=== PATIENT | female | born 1960 | race Hispanic/Latino ===

== ENCOUNTER → 2023-11-05 | Emergency (ER) | payer OTHER ==
[~2023-11-05] MED LIST: MORPHINE 4 MG/ML SYR ONE; ONDANSETRON 4 MG/2 ML VIAL ONE
--- NOTE | 2023-11-05 22:40 | RAD REPORT ---
EXAM DESCRIPTION: CTAbdomen Pelvis Wo Contrast - 11/05/2023 10:29 pm CLINICAL HISTORY: ABD PAIN COMPARISON: No comparisons TECHNIQUE: CT of the abdomen and pelvis was performed. All CT scans are performed using dose optimization technique as appropriate and may include automated exposure control or mA/KV adjustment according to patient size. FINDINGS: Lower chest: No acute abnormality. Liver: No acute abnormality or suspicious lesions. Biliary: Cholelithiasis. No CT evidence of acute cholecystitis. Stomach: No significant focal abnormality. Duodenum: No significant focal abnormality. Pancreas: No significant abnormality. Spleen: No significant abnormality. Adrenal: No suspicious lesions. Kidney/ureter: No hydronephrosis. No renal calculi. Retroperitoneum: No retroperitoneal adenopathy. Vascular: No aneurysm. Bowel: Normal appendix. Mild to moderate colonic stool burden.. No bowel obstruction. Peritoneum: No ascites or free air. Small fat containing ventral hernia with narrow neck. Tiny fat co ntaining umbilical hernia. Bladder: Grossly unremarkable. Reproductive: No adnexal masses. Bones: No acute fracture. Other: n/a IMPRESSION: No acute intra-abdominal or pelvic finding. Ancillary findings as noted above.
[2023-11-05 23:24] LABS: Specific Gravity 1.008 (1.005-1.030); Urine Bilirubin NEGATIVE (Negative); Urine Blood Negative (Negative); Urine Clarity Clear (Clear); Urine Color Colorless (Yellow); Urine Glucose NEGATIVE (Negative); Urine Protein NEGATIVE (Negative); Urine Urobilinogen Normal (Normal); Urine pH 6.5 (5.0-7.0)
[2023-11-05 23:33] LABS: Absolute Lymphocytes (CBC) 2.5 K/uL (0.7-4.9); Albumin 3.6 g/dL (3.4-5.0); Bilirubin Total 0.3 mg/dL (0.2-1.0); Hematocrit 43.8 % (36.0-45.0); Lymphocytes % 29.1 % (15.3-44.8); MCV 93.9 fL (80-100); MPV 10.5 fL (7.6-11.3); Platelets 211 thou/uL (152-406); Protein, Total 7.8 g/dL (6.4-8.2); RBC Red Blood Cell Count 4.67 M/uL (3.86-4.86)
--- NOTE | 2023-11-06 00:04 | EDPHYS ---
Physician Documentation [facility] Name: Caroline Jimenez Age: 62 yrs Sex: Female : 1960 Arrival Date: 11/05/2023 Time: 21:49 Bed 16 Private MD: ED Physician Charles Toribio HPI: 11/05 23:02 This 62 yrs old Female presents to ER via Wheelchair with complaints of kb Abdominal Pain. 23:03 Patient is a 62-year-old female who presents for abdominal pain. States she has had a kb hernia in the area of pain for years and has had pain intermittently over the last 2 to 5 years but it seems like it is getting worse. Denies fever, nausea, vomiting, diarrhea.. Historical: - Allergies: 22:08 No Known Allergies; tl4 - PMHx: 22:08 HIV positive; Hypertensive disorder; Aneurysm; brain; tl4 - PSHx: 22:08 Aneurysm repair; tl4 - Immunization history:: Adult Immunizations unknown. - Social history:: Smoking status: Patient reports the use of cigarette tobacco products, smokes one pack cigarettes per day. ROS: 23:01 Constitutional: Negative for fever, chills, and weight loss, kb 23:01 Abdomen/GI: Positive for abdominal pain, Negative for nausea, vomiting, and diarrhea, 23:01 All other systems are negative, Exam: 23:01 Constitutional: This is a well developed, well nourished patient who is awake, alert, kb and in no acute distress. Head/Face: Normocephalic, atraumatic. ENT: Moist Mucous membranes Cardiovascular: Regular rate Respiratory: Respirations even and unlabored. No increased work of breathing. Talking in full sentences Skin: Warm, dry with normal turgor. Normal color. MS/ Extremity: Pulses equal, no cyanosis. Neurovascular intact. Full, normal range of motion. Neuro: Awake and alert, GCS 15, oriented to person, place, time, and situation. Moves all extremities. Normal gait. 23:01 Abdomen/GI: Inspection: abdomen appears normal, Bowel sounds: normal, Palpation: soft, in all quadrants, mild abdominal tenderness, in the umbilical area, Hernia: tenderness, that is mild, Vital Signs: 22:00 BP 154 / 89; Pulse 74; Resp 20; Temp 98.5; Pulse Ox 93% on R/A; Pain 10/10; tl4 22:07 Weight 88.45 kg; Height 5 ft. 5 in. ; tl4 22:51 Pulse 81; Pulse Ox 97% on R/A; tm6 22:54 BP 147 / 88; tm6 22:54 Pain 10/10; tm6 23:59 BP 132 / 74; Pulse 71; Pulse Ox 96% on R/A; tm6 22:07 Body Mass Index 32.45 (88.45 kg, 165.1 cm) tl4 22:00 Pain Scale: Adult tl4 22:54 Pain Scale: Adult tm6 MDM: 22:02 Patient medically screened. kb 23:01 Data reviewed: vital signs, nurses notes. kb 23:03 Differential diagnosis: bowel obstruction, gastritis, non-specific abd pain, kb pancreatitis, Peptic Ulcer Disease, Hernia. 11/06 00:03 Counseling: I had a detailed discussion with the patient and/or guardian regarding the kb historical points, exam findings, and any diagnostic results supporting the discharge/admit diagnosis, lab results, radiology results, the need for outpatient follow up, a family practitioner, to return to the emergency department if symptoms worsen or persist or if there are any questions or concerns that arise at home. 11/05 22:08 Order name: CBC with Diff; Complete Time: 23:56 kb 11/05 22:08 Order name: CMP; Complete Time: 23:35 kb 11/05 22:08 Order name: Lipase; Complete Time: 23:35 kb 11/05 22:08 Order name: Urinalysis w/ reflexes; Complete Time: 23:29 kb 11/05 22:08 Order name: CT Abd/Pelvis - Without Contrast; Complete Time: 22:43 kb 11/05 22:08 Order name: IV Saline Lock; Complete Time: 22:51 kb 11/05 22:08 Order name: Labs collected and sent; Complete Time: 22:51 kb Administered Medications: 11/05 23:44 Drug: morphine IVP or IV 4 mg IVP once over 4 mins Route: IVP; Infused Over: 4 mins; pf1 Site: left antecubital; 23:44 Drug: Ondansetron IVP 4 mg IVP once; over 2 minutes Route: IVP; Site: left antecubital; pf1 Disposition: 23:36 I was immediately available on-site in the Emergency Department for consultation in the ms3 care of the patient. Disposition Summary: 11/06/23 00:03 Discharge Ordered Notes: Location: Home kb Condition: Stable kb Diagnosis - Abdominal pain, unspecified kb Followup: kb - With: Emergency Department - When: As needed - Reason: Worsening of condition Followup: kb - With: Private Physician - When: 2 - 3 days - Reason: Recheck today's complaints, Continuance of care, Re-evaluation by your physician Discharge Instructions: - Discharge Summary Sheet kb - Abdominal Pain, Adult, [id number] kb Forms: - Medication Reconciliation Form kb - Thank You Letter kb - Antibiotic Education kb - Prescription Opioid Use kb - Patient Portal Instructions kb - Leadership Thank You Letter kb Signatures: Dispatcher [employer] EDMS Yessy Avina FNP-C FNP-Charles Sims, DO ms3 Suha Reese RN RN pf1 Sonu Camacho tl4 Corrections: (The following items were deleted from the chart) 23:02 23:01 Abdomen/GI: Inspection: abdomen appears normal, Bowel sounds: normal, Palpation: kb soft, in all quadrants, mild abdominal tenderness, in the umbilical area, kb
--- NOTE | 2023-11-06 00:04 | ER ---
Nurse's Notes [facility] Name: Caroline Jimenez Age: 62 yrs Sex: Female : 1960 Arrival Date: 11/05/2023 Time: 21:49 Bed 16 Private MD: Diagnosis: Abdominal pain, unspecified Presentation: 11/05 22:00 Chief complaint: Patient states: Pt c/o progressively worsening umbilical abdominal tl4 pain since Monday. Pt states she has a progressively worsening abdominal hernia x 5 years. +nausea. Coronavirus screen: Vaccine status: Patient reports receiving the 2nd dose of the covid vaccine. Ebola Screen: Patient negative for fever greater than or equal to 101.5 degrees Fahrenheit, and additional compatible Ebola Virus Disease symptoms Patient denies exposure to infectious person. Patient denies travel to an Ebola-affected area in the 21 days before illness onset. No symptoms or risks identified at this time. Initial Sepsis Screen: Does the patient meet any 2 criteria? No. Patient's initial sepsis screen is negative. Does the patient have a suspected source of infection? No. Patient's initial sepsis screen is negative. Risk Assessment: Do you want to hurt yourself or someone else? Patient reports no desire to harm self or others. Onset of symptoms was November 03, 2023. 22:00 Method Of Arrival: Wheelchair tl4 22:00 Acuity: MICHAEL 3 tl4 Triage Assessment: 22:10 General: Appears in no apparent distress. Behavior is calm, cooperative. Pain: tl4 Complains of pain in abdomen Pain currently is 10 out of 10 on a pain scale. Quality of pain is described as sharp. EENT: No signs and/or symptoms were reported regarding the EENT system. Neuro: No deficits noted. Cardiovascular: No deficits noted. Denies chest pain, lightheadedness, palpitations. Respiratory: No deficits noted. Denies cough, shortness of breath. GI: Reports lower abdominal pain, upper abdominal pain, nausea. : No signs and/or symptoms were reported regarding the genitourinary system. Historical: - Allergies: 22:08 No Known Allergies; tl4 - PMHx: 22:08 HIV positive; Hypertensive disorder; Aneurysm; brain; tl4 - PSHx: 22:08 Aneurysm repair; tl4 - Immunization history:: Adult Immunizations unknown. - Social history:: Smoking status: Patient reports the use of cigarette tobacco products, smokes one pack cigarettes per day. Screenin:[address] [facility] ED Fall Risk Assessment (Adult) History of falling in the last 3 months, tl4 including since admission No falls in past 3 months (0 pts) Confusion or Disorientation No (0 pts) Intoxicated or Sedated No (0 pts) Impaired Gait No (0 pts) Mobility Assist Device Used No (0 pt) Altered Elimination No (0 pt) Score/Fall Risk Level 0 - 2 = Low Risk Oriented to surroundings, Maintained a safe environment, Educated pt \T\ family on fall prevention, incl call for assistance when getting out of bed, Assessed \T\ reinforced patient's understanding of fall precautions. Abuse screen: Denies threats or abuse. Denies injuries from another. Nutritional screening: No deficits noted. Tuberculosis screening: No symptoms or risk factors identified. Assessment: 22:36 General: Appears in no apparent distress. Behavior is calm, cooperative. Pain: tm6 Complains of pain in abdomen Pain currently is 10 out of 10 on a pain scale. Neuro: Level of Consciousness is awake, alert, obeys commands, Oriented to person, place, time, situation. Cardiovascular: Capillary refill < 3 seconds Patient's skin is warm and dry. Respiratory: Airway is patent Respiratory effort is even, unlabored, Respiratory pattern is regular, symmetrical. : No signs and/or symptoms were reported regarding the genitourinary system. EENT: No signs and/or symptoms were reported regarding the EENT system. Derm: No signs and/or symptoms reported regarding the dermatologic system. Musculoskeletal: No signs and/or symptoms reported regarding the musculoskeletal system. 23:59 Reassessment: Patient appears in no apparent distress at this time. No changes from tm6 previously documented assessment. Vital Signs: 22:00 BP 154 / 89; Pulse 74; Resp 20; Temp 98.5; Pulse Ox 93% on R/A; Pain 10/10; tl4 22:07 Weight 88.45 kg; Height 5 ft. 5 in. ; tl4 22:51 Pulse 81; Pulse Ox 97% on R/A; tm6 22:54 BP 147 / 88; tm6 22:54 Pain 10/10; tm6 23:59 BP 132 / 74; Pulse 71; Pulse Ox 96% on R/A; tm6 22:07 Body Mass Index 32.45 (88.45 kg, 165.1 cm) tl4 22:00 Pain Scale: Adult tl4 22:54 Pain Scale: Adult tm6 ED Course: 21:55 Patient arrived in ED. gm2 22:02 [facility] nic 22:02 Charles Toribio DO is Attending Physician. kb 22:04 Triage completed. tl4 22:05 Arm band placed on Patient placed in an exam room, on a stretcher. tl4 22:05 Placed in gown. Bed in low position. Call light in reach. Side rails up X2. tm6 22:25 Syed Kunz, RN is Primary Nurse. tm6 22:30 CT Abd/Pelvis - Without Contrast In Process Unspecified. EDMS 22:50 No provider procedures requiring assistance completed. Inserted saline lock: 20 gauge tm6 in left antecubital area, using aseptic technique. 22:51 Urinalysis w/ reflexes Sent. tm6 22:51 Lipase Sent. tm6 22:51 CMP Sent. tm6 22:51 CBC with Diff Sent. tm6 11/06 00:12 Provided Education on: follow up with GI and general surgery. tm6 00:12 IV discontinued, intact, bleeding controlled, No redness/swelling at site. Pressure tm6 dressing applied. Administered Medications: 11/05 23:44 Drug: morphine IVP or IV 4 mg IVP once over 4 mins Route: IVP; Infused Over: 4 mins; pf1 Site: left antecubital; 23:44 Drug: Ondansetron IVP 4 mg IVP once; over 2 minutes Route: IVP; Site: left antecubital; pf1 Medication: 22:05 VIS not applicable for this client. tl4 Outcome: 11/06 00:03 Discharge ordered by . kb 00:12 Discharged to home ambulatory, with family, tm6 00:12 Condition: stable 00:12 Discharge instructions given to patient, Instructed on discharge instructions, follow up and referral plans. Demonstrated understanding of instructions, follow-up care, medications, 00:13 Patient left the ED. tm6 Signatures: Dispatcher [employer] EDMS Yessy Avina FNP-C FNP-Ckb Finley, Pamala RN RN pf1 Fifi Armstrong gm2 Syed Kunz, RN RN tm6 [place], Sonu tl4
[2023-11-06 01:31] VITALS: BP 132/74; TEMP 98.5; O2SAT 96
== END ==
LOC: ER 21:49
DX: R10.9 Unspecified abdominal pain (principal); Z21 Asymptomatic human immunodeficiency virus [HIV] infection status; I10 Essential (primary) hypertension; F17.210 Nicotine dependence, cigarettes, uncomplicated
CPT/HCPCS: 85025; 36415; 81003; 83690; 80053; 74176; 96375; 96374; 99284; J2405

== ENCOUNTER 2024-11-30 22:12 | Inpatient (IN) | payer OTHER ==
[2024-11-30] MEDS ORDERED: ASPIRIN 81 MG CHEWABLE TABLET ONE (23:42)
[2024-11-30 23:50] LABS: Absolute Basophils 0.1 K/uL (0-0.5); Absolute Eosinophils 0.4 K/uL (0-0.5); Absolute Lymphocytes (CBC) 2.4 K/uL (0.7-4.9); Absolute Monocytes 0.6 K/uL (0.1-1.3); Absolute Neutrophil 3.9 K/uL (1.8-8.0); Basophils % 1.2 % (0-1.3); Eosinophils % 5.1 % (0-4.4); Hematocrit 44.2 % (36.0-45.0); Hemoglobin 14.9 g/dL (12.0-15.0); Lymphocytes % 32.4 % (15.3-44.8); MCH 31.9 pg (27.0-35.0); MCHC 33.7 g/dL (32.0-36.0); MCV 94.6 fL (80-100); MPV 10.2 fL (7.6-11.3); Monocytes % 8.4 % (3.3-12.3); Neutrophils % 52.9 % (41.7-73.7); Nucleated Red Blood Cells % 0.2 % (0-0); Platelets 208 thou/uL (152-406); RBC Red Blood Cell Count 4.68 M/uL (3.86-4.86); Red Cell Distribution Width 13.8 % (12.1-15.2)
[2024-12-01 00:09] LABS: ALT/SGPT 23 U/L (13-56); AST/SGOT 17 U/L (15-37); Albumin 3.3 g/dL (3.4-5.0); Albumin/Globulin Ratio 0.8 (1.1-1.8); Alkaline Phosphatase 82 U/L (45-117); Anion Gap 8.4 mEq/L (5.0-15.0); BUN Blood Urea Nitrogen 25 mg/dL (7-18); Bicarbonate 24 mEq/L (21-32); Bilirubin Total 0.4 mg/dL (0.2-1.0); Globulin 4.1 g/dL (2.3-3.5); Glomerular Filtration Rate 71 ml/min (=/>90); Glucose Level 117 mg/dL (74-106); Magnesium 2.2 mg/dL (1.6-2.4); NT PRO-BNP 81 pg/mL (<125); Potassium 3.4 mEq/L (3.5-5.1); Protein, Total 7.4 g/dL (6.4-8.2); Sodium Level 143 mEq/L (136-145); Troponin High Sensitivity 6.6 pg/mL (<58.9)
[2024-12-01 00:10] LABS: Bilirubin Direct < 0.2 mg/dL (0-0.2); Bilirubin Indirect, Calculated 0.2 mg/dL (0.2-0.8)
[2024-12-01] MEDS ORDERED: NA CHLORIDE 0.9% 1,000 ML ONE (00:23)
[2024-12-01 00:24] LABS: PT Prothrombin Time 11.4 SECONDS (9.4-12.5); Protime INR 1.09
--- NOTE | 2024-12-01 00:30 | RAD REPORT ---
TIME OF STUDY: 11/30/2024 11:06 PM CATALYTIC CASE OPERATOR REASON FOR EXAM: CHEST PAIN COMPARISON: None. FINDINGS: AP view of the chest was obtained, chest 1 view. Lungs: The lungs are adequately inflated. No dense airspace consolidation is noted. Mild pulmonary va scular congestion is seen.. Pleura: No pneumothorax. There is no pleural effusion. Heart and Mediastinum: Normal cardiomediastinal silhouette and great vessels.. Bones: No acute bony abnormality.. IMPRESSION: 1. Mild pulmonary vascular congestion. Electronically signed by: Foster Kelley MD 11/30/2024 11:50 PM CATALYTIC CASE OPERATOR Due to temporary technical issues with the PACS/[employer] reporting system, reports are being yen d by the in-house radiologist without review as a courtesy to ensure prompt reporting the interpreting radiologist is fully responsible for the content of the report. Transcribed Date/Time: 12/01/2024 12:30 AM
--- NOTE | 2024-12-01 01:30 | EDPHYS ---
Physician Documentation [facility] Name: Caroline Jimenez Age: 64 yrs Sex: Female : 1960 Arrival Date: 11/30/2024 Time: 22:12 Bed 5 Private MD: ED Physician [facility] HPI: 11/30 23:12 This 64 yrs old Female presents to ER via Unassigned with complaints of Chest sb4 Pain. 23:12 The patient or guardian reports chest pain that is located primarily in the anterior sb4 chest wall, left. Onset: yesterday. The pain radiates to the left arm. Associated signs and symptoms: Pertinent positives: cough, nausea, shortness of breath. left sided chest pain x 2 days, radiates down to left arm. denies any cardiac history . Historical: - Allergies: 23:16 No Known Allergies; vc1 - PMHx: 23:16 Aneurysm; brain; HIV positive; Hypertensive disorder; vc1 - PSHx: 23:16 aneurysm repair; vc1 - Immunization history:: Client reports receiving the 2nd dose of the Covid vaccine, Flu vaccine is not up to date. - Infectious Disease History:: Denies. - Social history:: Smoking status: Patient reports the use of cigarette tobacco products, <1PPD. ROS: 23:12 Constitutional: Negative for fever, chills, and weight loss, sb4 23:12 Cardiovascular: Positive for chest pain, Exam: 23:12 Head/Face: Normocephalic, atraumatic. Eyes: Extra-ocular motions intact. Periorbital sb4 areas with no swelling, redness, or edema. ENT: Mucous membranes moist. Cardiovascular: Regular rate and rhythm with a normal S1 and S2. Respiratory: No increased work of breathing, no retractions or nasal flaring. Abdomen/GI: Soft, non-tender, no distension. Skin: Warm, dry with normal turgor. Normal color with no rashes, no lesions, and no evidence of cellulitis. 23:12 Constitutional: The patient appears alert, awake, obviously ill, Vital Signs: 23:14 Pulse 68; Resp 20; Temp 98; Pulse Ox 96% ; Weight 90.72 kg; Height 5 ft. 5 in. ; Pain vc1 10/10; 23:20 BP 129 / 82; vc1 23:30 BP 131 / 89; Pulse 68; Resp 15; Pulse Ox 98% on R/A; al5 12/01 00:00 BP 152 / 97; Pulse 66; Resp 17; Pulse Ox 98% ; al5 00:30 BP 148 / 92; Pulse 69; Resp 15; Pulse Ox 97% on R/A; al5 01:00 BP 134 / 85; Pulse 72; Resp 15; Pulse Ox 97% on R/A; al5 01:30 BP 156 / 90; Pulse 65; Resp 16; Pulse Ox 97% on R/A; al5 02:00 BP 154 / 90; Pulse 68; Resp 16; Pulse Ox 97% on R/A; al5 11/30 23:14 Body Mass Index 33.28 (90.72 kg, 165.1 cm) vc1 11/30 23:14 Pain Scale: Adult vc1 MDM: 11/30 22:34 Medical Screening Exam initiated sb4 12/01 00:46 The patient was given aspirin in the Emergency Department. Data reviewed: vital signs, sb4 nurses notes, lab test result(s), EKG, radiologic studies, and as a result, I will admit patient. Consideration of Admission/Observation Patient was admitted/placed on observation. Historians other than the Patient: Daughter/Son: daughter. Scoring Tools HEART Score: History: ECG: Age: Risk Factors: > or = 3 Risk factors for atherosclerotic disease (2), Troponin: Total Score = 5. Counseling: I had a detailed discussion with the patient and/or guardian regarding the historical points, exam findings, and any diagnostic results supporting the discharge/admit diagnosis, lab results, radiology results. 11/30 23:06 Order name: Basic Metabolic Panel; Complete Time: 00:10 4 11/30 23:06 Order name: CBC with Diff; Complete Time: 00:03 sb4 11/30 23:06 Order name: LFT's; Complete Time: 00:10 sb4 11/30 23:06 Order name: Magnesium; Complete Time: 00:10 sb4 11/30 23:06 Order name: NT PRO-BNP; Complete Time: 00:10 sb4 11/30 23:06 Order name: PT-INR; Complete Time: 00:27 sb4 11/30 23:06 Order name: Troponin HS; Complete Time: 00:10 sb4 12/01 00:11 Order name: [facility] 12/01 02:10 Order name: Lipid Profile [facility] 12/01 02:10 Order name: Lipid Profile [facility] 12/01 08:15 Order name: Glucose, Ancillary Testing [facility] 12/01 09:07 Order name: Hemoglobin A1c [facility] 12/01 11:44 Order name: Troponin High Sensitivity [facility] 12/01 12:05 Order name: Glucose, Ancillary Testing [facility] 12/01 16:52 Order name: Glucose, Ancillary Testing [facility] 11/30 23:06 Order name: XRAY Chest (1 view); Complete Time: 00:31 sb4 12/01 00:13 Order name: Chest For PE Angio CT sb4 12/01 02:10 Order name: Echo with Doppler [facility] 11/30 23:06 Order name: Cardiac monitoring; Complete Time: 23:36 4 11/30 23:06 Order name: EKG - Nurse/Tech; Complete Time: 23:36 4 11/30 23:06 Order name: IV Saline Lock; Complete Time: 23:36 [facility] 11/30 23:06 Order name: Labs collected and sent; Complete Time: 23:36 4 11/30 23:06 Order name: O2 Per Protocol; Complete Time: 23:36 4 11/30 23:06 Order name: O2 Sat Monitoring; Complete Time: 23:36 4 11/30 23:46 Order name: Misc. Order: recollect blue top- fill all the way up; Complete Time: 23:53 vc1 EC/15 23:12 Rate is 70 beats/min. Rhythm is regular, Normal Sinus Rhythm. Right axis deviation sb4 noted. NC interval is normal at 150 msec. QRS interval is normal at 90 msec. QT interval is normal at 422 msec. No Q waves. T waves are Normal. No ST changes noted. Clinical impression: Normal ECG. Interpreted by me. Reviewed by me. Administered Medications: 23:46 Drug: Aspirin PO Chewable Tablet 324 mg PO once; 81 mg tablets x 4 Route: PO; al5 12/01 05:18 Follow up: Response: No adverse reaction al5 00:26 Drug: NS 0.9% IV 1000 ml IV at 1000 ml once; to be given as a bolus over 60 minutes al5 Route: IV; Rate: 1000 ml; Site: right antecubital; 05:18 Follow up: Response: No adverse reaction; IV Status: Completed infusion; IV Intake: al5 1000ml 01:20 CANCELLED (Physician Discretion): morphineor iv 4 mg IVP once over 4 mins sb4 01:20 CANCELLED (Physician Discretion): ondansetron 4 mg IVP once; over 2 minutes sb4 02:17 Drug: fentaNYL (PF) IVP 25 mcg IVP once Route: IVP; Site: right antecubital; al5 05:18 Follow up: Response: No adverse reaction; Pain is decreased al5 02:17 Drug: Ondansetron IVP 4 mg IVP once; over 2 minutes Route: IVP; Site: right antecubital;al5 05:18 Follow up: Response: No adverse reaction al5 Disposition Summary: 12/01/24 01:29 Hospitalization Ordered Notes: Hospitalization Status: Observation sb4 Provider: Prince robert Vanegas Condition: Fair sb4 Problem: new sb4 Symptoms: are unchanged sb4 Bed/Room Type: Standard sb4 Location: Telemetry/MedSurg (Inpatient)(12/01/24 16:33) bp Room Assignment: 209(12/01/24 16:33) bp Diagnosis - Chest pain, unspecified sb4 Forms: - Medication Reconciliation Form sb4 - SBAR form sb4 - Leadership Thank You Letter sb4 Signatures: Dispatcher [employer] Heidi Chaney RN RN cg Gilberto Maynard RN RN bp Deanna Torrez RN RN vc1 Adri Christianson PA-C PA-C sb4 Frieda Posada RN RN al5 Corrections: (The following items were deleted from the chart) 00:13 00:13 Chest For PE Angio+CT.RAD.BRZ ordered. EDMS EDMS 01:20 00:31 morphine IVP or IV 4 mg IVP once over 4 mins ordered. sb4 sb4 01:20 00:31 Ondansetron IVP 4 mg IVP once; over 2 minutes ordered. sb4 sb4 02:05 01:29 Telemetry/MedSurg (observation) sb4 cg 02:05 01:29 sb4 cg 16:33 02:05 [facility] ER HOLD cg bp 16:33 02:05 ERHOLD- cg bp
--- NOTE | 2024-12-01 01:30 | ER ---
Nurse's Notes [facility] Name: Caroline Jimenez Age: 64 yrs Sex: Female : 1960 Arrival Date: 11/30/2024 Time: 22:12 Bed 5 Private MD: Diagnosis: Chest pain, unspecified Presentation: 11/30 23:14 Chief complaint: Patient states: pain below left breast that is worse with movement. vc1 Coronavirus screen: Client denies travel out of the [place] in the last 14 days. At this time, the client does not indicate any symptoms associated with coronavirus-19. Ebola Screen: Patient negative for fever greater than or equal to 101.5 degrees Fahrenheit, and additional compatible Ebola Virus Disease symptoms Patient denies exposure to infectious person. Patient denies travel to an Ebola-affected area in the 21 days before illness onset. No symptoms or risks identified at this time. Initial Sepsis Screen: Does the patient meet any 2 criteria? No. Patient's initial sepsis screen is negative. Does the patient have a suspected source of infection? No. Patient's initial sepsis screen is negative. Risk Assessment: Do you want to hurt yourself or someone else? Patient reports no desire to harm self or others. Onset of symptoms was November 30, 2024. 23:14 Method Of Arrival: Wheelchair vc1 23:14 Acuity: MICHAEL 3 vc1 Triage Assessment: 23:18 General: Appears in no apparent distress. uncomfortable, obese, well groomed, well vc1 developed, well nourished, Behavior is calm, cooperative, appropriate for age. Pain: Complains of pain in left lateral anterior chest Pain does not radiate. Pain currently is 10 out of 10 on a pain scale. Aggravated by weight bearing, Also complains of nausea. EENT: No deficits noted. No signs and/or symptoms were reported regarding the EENT system. Neuro: Level of Consciousness is awake, alert, obeys commands, Oriented to person, place, time, situation, Appropriate for age. Cardiovascular: Heart tones S1 S2 present Capillary refill < 3 seconds Patient's skin is warm and dry. Chest pain is described as severe, Pain is 10 out of 10 on a pain scale. quality is sharp, is located in left chest wall. Respiratory: Airway is patent Respiratory effort is even, unlabored, Respiratory pattern is regular, symmetrical. GI: Abdomen is round non-distended, Reports nausea. : No deficits noted. No signs and/or symptoms were reported regarding the genitourinary system. Derm: Skin is intact, is healthy with good turgor, Skin is dry, Skin is normal, Skin temperature is warm. Musculoskeletal: Circulation, motion, and sensation intact. Range of motion: intact in all extremities, Reports pain in left lateral anterior chest. Historical: - Allergies: 23:16 No Known Allergies; vc1 - PMHx: 23:16 Aneurysm; brain; HIV positive; Hypertensive disorder; vc1 - PSHx: 23:16 aneurysm repair; vc1 - Immunization history:: Client reports receiving the 2nd dose of the Covid vaccine, Flu vaccine is not up to date. - Infectious Disease History:: Denies. - Social history:: Smoking status: Patient reports the use of cigarette tobacco products, <1PPD. Screenin:17 [facility] ED Fall Risk Assessment (Adult) History of falling in the last 3 months, vc1 including since admission No falls in past 3 months (0 pts) Confusion or Disorientation No (0 pts) Intoxicated or Sedated No (0 pts) Impaired Gait No (0 pts) Mobility Assist Device Used No (0 pt) Altered Elimination No (0 pt) Score/Fall Risk Level 0 - 2 = Low Risk Oriented to surroundings, Maintained a safe environment, Educated pt \T\ family on fall prevention, incl call for assistance when getting out of bed. Abuse screen: Denies threats or abuse. Nutritional screening: No deficits noted. Tuberculosis screening: No symptoms or risk factors identified. Assessment: 23:39 General: Appears in no apparent distress. uncomfortable, Behavior is calm, cooperative. al5 Pain: Complains of pain in left lateral anterior chest Pain currently is 10 out of 10 on a pain scale. Pain began suddenly. Neuro: Level of Consciousness is awake, alert, obeys commands, Oriented to person, place, time, situation. Cardiovascular: Reports chest pain, Capillary refill < 3 seconds Patient's skin is warm and dry. Rhythm is sinus rhythm. Respiratory: Airway is patent Respiratory effort is even, unlabored, Respiratory pattern is regular, symmetrical. GI: No signs and/or symptoms were reported involving the gastrointestinal system. : No signs and/or symptoms were reported regarding the genitourinary system. EENT: No signs and/or symptoms were reported regarding the EENT system. Derm: Skin is intact, is healthy with good turgor, Skin is pink, warm \T\ dry. normal. Musculoskeletal: No signs and/or symptoms reported regarding the musculoskeletal system. 12/01 00:50 Reassessment: Patient appears in no apparent distress at this time. No changes from al5 previously documented assessment. Patient and/or family updated on plan of care and expected duration. Pain level reassessed. Patient is alert, oriented x 3, equal unlabored respirations, skin warm/dry/pink. 02:20 Reassessment: Patient appears in no apparent distress at this time. No changes from al5 previously documented assessment. Patient and/or family updated on plan of care and expected duration. Pain level reassessed. Patient is alert, oriented x 3, equal unlabored respirations, skin warm/dry/pink. patient admitted to ER hold. Vital Signs: 11/30 23:14 Pulse 68; Resp 20; Temp 98; Pulse Ox 96% ; Weight 90.72 kg; Height 5 ft. 5 in. ; Pain vc1 10/10; 23:20 BP 129 / 82; vc1 23:30 BP 131 / 89; Pulse 68; Resp 15; Pulse Ox 98% on R/A; al5 12/01 00:00 BP 152 / 97; Pulse 66; Resp 17; Pulse Ox 98% ; al5 00:30 BP 148 / 92; Pulse 69; Resp 15; Pulse Ox 97% on R/A; al5 01:00 BP 134 / 85; Pulse 72; Resp 15; Pulse Ox 97% on R/A; al5 01:30 BP 156 / 90; Pulse 65; Resp 16; Pulse Ox 97% on R/A; al5 02:00 BP 154 / 90; Pulse 68; Resp 16; Pulse Ox 97% on R/A; al5 11/30 23:14 Body Mass Index 33.28 (90.72 kg, 165.1 cm) vc1 11/30 23:14 Pain Scale: Adult vc1 ED Course: 11/30 22:15 Patient arrived in ED. gm2 22:34 Adri Christianson PA-C is PHCP. sb4 22:34 [facility] MD is Attending Physician. sb4 23:16 Triage completed. vc1 23:16 Arm band placed on left wrist. vc1 23:17 Patient has correct armband on for positive identification. Bed in low position. Call vc1 light in reach. Provided Education on: Call light. compliance monitor on. Pulse ox on. NIBP on. 23:20 Patient maintains SpO2 saturation greater than 95% on room air. vc1 23:36 Frieda Posada, RN is Primary Nurse. al5 23:36 No provider procedures requiring assistance completed. Inserted saline lock: 20 gauge al5 in right antecubital area, using aseptic technique. Blood collected. Flushed with 10 mL NS. 23:43 XRAY Chest (1 view) In Process Unspecified. EDMS 23:43 X-ray completed. Portable x-ray completed in exam room. Patient tolerated procedure mh1 well. 23:53 Lab(s) recollected, by me, sent to lab. vk 12/01 01:00 Chest For PE Angio CT In Process Unspecified. EDMS 01:29 Prince Vanegas MD is Hospitalizing Provider. sb4 02:17 Patient admitted, IV remains in place. al5 12:04 Diet: DELIVERED LUNCH TRAY TO PT. sp 16:59 Diet: DELIVERED DINNER TRAY TO PT.. sp Administered Medications: 11/30 23:46 Drug: Aspirin PO Chewable Tablet 324 mg PO once; 81 mg tablets x 4 Route: PO; al5 16 05:18 Follow up: Response: No adverse reaction al5 00:26 Drug: NS 0.9% IV 1000 ml IV at 1000 ml once; to be given as a bolus over 60 minutes al5 Route: IV; Rate: 1000 ml; Site: right antecubital; 05:18 Follow up: Response: No adverse reaction; IV Status: Completed infusion; IV Intake: al5 1000ml 01:20 CANCELLED (Physician Discretion): morphineor iv 4 mg IVP once over 4 mins sb4 01:20 CANCELLED (Physician Discretion): ondansetron 4 mg IVP once; over 2 minutes sb4 02:17 Drug: fentaNYL (PF) IVP 25 mcg IVP once Route: IVP; Site: right antecubital; al5 05:18 Follow up: Response: No adverse reaction; Pain is decreased al5 02:17 Drug: Ondansetron IVP 4 mg IVP once; over 2 minutes Route: IVP; Site: right antecubital;al5 05:18 Follow up: Response: No adverse reaction al5 Medication: 11/30 23:17 VIS not applicable for this client. vc1 Intake: 12/01 05:18 IV: 1000ml; Total: 1000ml. al5 Outcome: 01:29 Decision to Hospitalize by Provider. sb4 02:17 Admitted to ER Hold. Please see [facility] for further documentation. al5 02:17 Condition: stable 02:17 Instructed on the need for admit, 17:32 Patient left the ED. aa5 Signatures: Dispatcher [employer] EDMS Cary Nazario Martha mh1 Magali Sandoval, RN RN aa5 Deanna Torrez RN RN vc1 Adri Christianson, PA-C PA-C sb4 Fifi Armstrong gm2 Maria Teresa Dunlap Amanda, RN RN al5 Corrections: (The following items were deleted from the chart) 05:19 11/30 23:39 Pain: Complains of pain in left lateral anterior chest Pain currently is 10 al5 out of 10 on a pain scale. al5
--- NOTE | 2024-12-01 01:47 | RAD REPORT ---
CLINICAL HISTORY: Chest pain. COMPARISON: XR Chest 11/30/[address] Chest 08/09/2024. TECHNIQUE: CT CHEST ANGIOGRAPHY WITH IV CONTRAST on 12/01/2024 12:13 AM PHYSICIAN NEONATOLOGY. MIPS reconstructions were generated. This exam was performed according to our departmental dose-optimization program, which includes autom ated exposure control, adjustment of the mA and/or kV according to patient size and/or use of iterative reconstruction technique. MIP images were generated. FINDINGS: Thoracic aorta is normal in course and caliber without aneurysm or dissection. Pulmonary arteries are adequately opacified without acute or chronic filling defects. The heart is normal in size. There is no pericardial effusion. Intrathoracic lymph nodes are not enla rged. There is no pleural effusion, pleural thickening or pneumothorax. Central airways are patent. There i s persistent scarring in the anteromedial left upper lobe. There are no acute abnormalities within the limited images of the upper abdomen. There are no acute osseous findings. No suspicious bony lesions. IMPRESSION: No aortic dissection or aneurysm. No pulmonary embolus. No pneumonia. Electronically signed by: Vishnu Garzon MD 12/01/2024 01:42 AM PHYSICIAN NEONATOLOGY RP Due to temporary technical issues with the PACS/[employer] reporting system, reports are being yen d by the in-house radiologist without review as a courtesy to ensure prompt reporting the interpreting radiologist is fully responsible for the content of the report. Transcribed Date/Time: 12/01/2024 1:47 AM
[2024-12-01] MEDS ORDERED: ONDANSETRON 4 MG/2 ML VIAL ONE (01:56)
[2024-12-01] MEDS ORDERED: FENTANYL CITR 100 MCG/2 ML ONE (01:56)
[2024-12-01 02:38] LABS: Specific Gravity > 1.030 (1.005-1.030); Sqamous Epithelial <5 /HPF (None Seen); Urine Bacteria None Seen /HPF (<20); Urine Bilirubin NEGATIVE (Negative); Urine Blood Negative (Negative); Urine Clarity Clear (Clear); Urine Color Colorless (Yellow); Urine Culture Reflex Order NOT NEEDED; Urine Glucose NEGATIVE (Negative); Urine Ketones NEGATIVE (Negative); Urine Micro Reflex YN NO BILL MICROSCOPIC; Urine Nitrite NEGATIVE (Negative); Urine Protein NEGATIVE (Negative); Urine RBC <5 /HPF (None Seen); Urine Urobilinogen Normal (Normal); Urine WBC None Seen /HPF (<5)
[2024-12-01 02:50] VITALS: O2SAT 97
--- NOTE | 2024-12-01 03:09 | P.HP ---
Certification for Inpatient Patient admitted to: Observation With expected LOS: <2 Midnights Practitioner: I am a practitioner with admitting privileges, knowledge of patient current condition, hospital course, and medical plan of care. Services: Services provided to patient in accordance with Admission requirements found in Title 42 Section 412.3 of the Code of Federal Regulations Patient History Date of Service: 12/01/24 Reason for admission: chest pain History of Present Illness: Patient is a 64 year old female with a PMH of obesity, HIV and HTN. She presents to the ER with left sided chest pain. She is describing a chest pain that has been progressively worsening. Her chest pain is radiating to the left arm. She denies shortness of breath, orthopnea and lower extremity edema. Her EKG shows normal sinus rhythm and RBBB. Her CTA chest is negative for dissection or PE. Home Medications: Bictegrav/Emtricit/Tenofov Ala [Biktarvy 50-200-25 mg Tablet] 1 tab PO DAILY 12/01/24 Carvedilol [Coreg] 3.125 ng PO BID 12/01/24 Gabapentin 600 mg PO TID 12/01/24 - Past Medical/Surgical History Has patient received pneumonia vaccine in the past: Yes -: HTN -: HIV POSITIVE -: ANEURYSM - Social History Smoking Status: Never smoker Place of Residence: Home Physical Examination - Physical Exam General: Acute distress, Obese HEENT: Atraumatic, Normocephalic Respiratory: Clear to auscultation bilaterally, Normal air movement Cardiovascular: No edema, Normal pulses, Regular rate/rhythm, Normal S1 S2 Neurological: Normal speech - Studies Laboratory Data (last 24 hrs) 11/30/24 11/30/24 11/30/24 23:51 23:24 23:24 WBC 7.40 Hgb 14.9 Hct 44.2 Plt Count 208 PT 11.4 INR 1.09 Sodium 143 Potassium 3.4 L BUN 25 H Creatinine 0.90 Glucose 117 H Magnesium 2.2 Total Bilirubin 0.4 AST 17 ALT 23 Alkaline Phosphatase 82 Assessment and Plan - Problems (Diagnosis) (1) Chest pain Current Visit: Yes Status: Acute (2) Obesity Current Visit: Yes Status: Acute (3) HTN (hypertension) Current Visit: Yes Status: Acute (4) HIV (human immunodeficiency virus infection) Current Visit: Yes Status: Acute - Plan Assessment Patient is a 64 year old female with a PMH of tobacco smoking, HTN, obesity and HIV. She is being admitted after she presented with chest pain. Her first troponin is negative, EKG with NSR and RBBB. She has borderline BP at this point. She has never had any of cardiac work up Chest pain, ACS r/o Hypokalemia HTN Obesity Tobacco smoking HIV PLAN: Admit to observation with telemetry ASA and high intensity statin Check lipid panel, HbA1c TTE Cardiology consult NTG if blood pressure tolerates Resume rest of BP meds Potassium replacement ordered - Advance Directives Does patient have a Living Will: No Does patient have a Durable POA for Healthcare: No
[2024-12-01] MEDS: POTASSIUM CL 40 MEQ in NA CHLORIDE 0.9% 500 ML IV SCH (04:00)
[2024-12-01] MEDS ORDERED: NA CHLORIDE 0.9% 500 ML ONE (04:40)
[2024-12-01] MEDS ORDERED: KCL 20 MEQ/100 mL IVPB 200 ML IV ONE (04:40)
[2024-12-01] MEDS: KCL 20 MEQ/100 mL IVPB 100 ML IV SCH (07:00)
[2024-12-01] MEDS ORDERED: ASPIRIN EC 81 MG TAB PO ONE (08:32)
[2024-12-01] MEDS ORDERED: GABAPENTIN 300 MG CAP ONE ×2 (08:32→12:59)
[2024-12-01] MEDS ORDERED: ENOXAPARIN 40 MG/0.4 ML SQ ONE (08:33)
[2024-12-01] MEDS ORDERED: NITROGLYCERIN 0.4 MG/TAB SL ONE (08:43)
[2024-12-01] MEDS: carvediloL 3.125 MG TAB PO SCH (08:44)
[2024-12-01] MEDS: ASPIRIN EC 81 MG TAB PO SCH (08:44)
[2024-12-01] MEDS: ENOXAPARIN 40 MG/0.4 ML SQ SCH (08:45)
[2024-12-01] MEDS: GABAPENTIN 300 MG CAP PO SCH (08:45)
[2024-12-01] MEDS: NITROGLYCERIN 0.4 MG/TAB SL PRN (08:46)
[2024-12-01] MEDS: [UNRECOGNIZED DRUG - OTHER] PO SCH (09:00)
--- NOTE | 2024-12-01 12:58 | P.CNS ---
Date of Consult: 12/01/24 Chief Complaint: chest pain History of Present Illness: Patient with PMH of HTN, HIV presented with chest pain, left sided, worse with movement, reproducible on exam , no other cardiac symptoms. Allergies No Known Allergies Allergy (Verified 12/01/24 05:24) Home medications list reviewed: Yes Home Medications: Bictegrav/Emtricit/Tenofov Ala [Biktarvy 50-200-25 mg Tablet] 1 tab PO DAILY 12/01/24 Carvedilol [Coreg] 3.125 ng PO BID 12/01/24 Gabapentin 600 mg PO TID 12/01/24 - Past Medical/Surgical History -: HTN -: HIV POSITIVE -: ANEURYSM - Social History Smoking Status: Current every day smoker Place of Residence: Home Review of Systems 10-point ROS is otherwise unremarkable Physical Examination Temp Pulse Resp BP Pulse Ox 65 19 153/96 H 95 12/01/24 08:46 12/01/24 08:00 12/01/24 08:46 12/01/24 08:00 General: Alert, In no apparent distress HEENT: Atraumatic, PERRLA, Mucous membr. moist/pink, EOMI, Sclerae nonicteric Neck: Supple, 2+ carotid pulse no bruit, No LAD, Without JVD or thyroid abnormality Respiratory: Clear to auscultation bilaterally, Normal air movement Cardiovascular: Regular rate/rhythm, Normal S1 S2 Gastrointestinal: Normal bowel sounds, No tenderness Musculoskeletal: No tenderness Integumentary: No rashes Neurological: Normal gait, Normal speech, Normal tone, Normal affect Lymphatics: No axilla or inguinal lymphadenopathy Laboratory Data (last 24 hrs) 11/30/24 11/30/24 11/30/24 23:51 23:24 23:24 WBC 7.40 Hgb 14.9 Hct 44.2 Plt Count 208 PT 11.4 INR 1.09 Sodium 143 Potassium 3.4 L BUN 25 H Creatinine 0.90 Glucose 117 H Magnesium 2.2 Total Bilirubin 0.4 AST 17 ALT 23 Alkaline Phosphatase 82 - Problems (1) Chest pain Current Visit: Yes Status: Acute Plan: atypical with negative cardiac markers and normal EKG, recommend to trend cardiac enzymes for 3 sets get echo in am
[2024-12-01] MEDS: MORPHINE 2 MG/ML SYR IV PRN (20:24)
[2024-12-01] MEDS: ATORVASTATIN 80 MG TAB PO SCH (20:25)
[2024-12-02] MEDS: HYDROCODONE/APAP 5/325 MG TAB PO ONE (00:11)
[2024-12-02 06:24] VITALS: BMI 33.6
[2024-12-02 12:46] VITALS: BP 141/77; TEMP 97.6
[2024-12-02] MEDS: ACETAMIN/CAFFEINE/BUTALB TAB PO ONE (12:49)
--- NOTE | 2024-12-02 13:04 | ECHO ---
/HEIGHT: 5 ft 5 in WEIGHT: 202 lb 1.6 oz DATE OF STUDY: 12/02/[address]: Prince Doc Vanegas MD 2-DIMENSIONAL: YES M.MODE: YES DOPPLER: YES COLOR FLOW: YES TDS: PORTABLE: YES DEFINITY: BUBBLE STUDY: DIAGNOSIS: CHEST PAIN CARDIAC HISTORY: CATHERIZATION: NO SURGERY: NO PROSTHETIC VALVE: NO PACEMAKER: NO MEASUREMENTS (cm) DIASTOLIC (NORMALS) SYSTOLIC (NORMALS) IVSd 1.2 (0.6-1.2) LA Diam 2.1 (1.9-4.0) LVEF 60-65% LVIDd 4.3 (3.5-5.7) LVIDs 3.1 (2.0-3.5) %FS 28% LVPWd 1.2 (0.6-1.2) Ao Diam 2.8 (2.0-3.7) 2 DIMENSIONAL ASSESSMENT: RIGHT ATRIUM: NORMAL LEFT ATRIUM: NORMAL RIGHT VENTRICLE: NORMAL LEFT VENTRICLE: NORMAL TRICUSPID VALVE: NORMAL MITRAL VALVE: NORMAL PULMONIC VALVE: NORMAL AORTIC VALVE: NORMAL PERICARDIAL EFFUSION: NONE AORTIC ROOT: NORMAL LEFT VENTRICULAR WALL MOTION: NORMAL DOPPLER/COLOR FLOW: NORMAL COMMENTS: 1. NORMAL LEFT VENTRICULAR SYSTOLIC FUNCTION, EJECTION FRACTION 60-65%, NORMAL WALL MOTION 2. NORMAL DIASTOLIC FUNCTION TECHNOLOGIST: KETAN NAYLOR
--- NOTE | 2024-12-02 13:05 | RAD REPORT ---
EXAM: CT brain without contrast HISTORY: Headache COMPARISON: None TECHNIQUE: Multiple contiguous axial images were obtained and a CT of the brain without contrast.. Sagittal and coronal reconstruction performed. Automated exposure control, adjustment of the mA and/or kV according to patient size, and/or iterative reconstruction. Unless otherwise specified, incidental f indings do not require dedicated imaging follow-up FINDINGS: Post surgical changes of a aneurysm repair. Artifact from the metal obscures detail of portions of th e brain. No acute intracranial bleed is seen. Ventricles are normal caliber No extra-axial fluid collection noted Mild low-density within periventricular, deep and subcortical white matter likely ischemic changes se condary to small vessel disease. No fluid within the visualized sinuses or mastoids noted. IMPRESSION: Post surgical changes of a cerebral aneurysm repair No acute abnormalities displayed
== END 2024-12-02 13:25 | disposition home or self-care (01) | DRG 313 ==
LOC: ER 22:12 → ERHOLD 12-01 02:06 → 2ND 12-01 17:17 → OBSVTOIN 12-01 17:59
PROVIDERS: ADMIT Internal Medicine; ATTEND Hospitalist
DX: R07.9 Chest pain, unspecified (principal); B20 Human immunodeficiency virus [HIV] disease; I10 Essential (primary) hypertension; E87.6 Hypokalemia; I45.10 Unspecified right bundle-branch block; E66.9 Obesity, unspecified; F17.210 Nicotine dependence, cigarettes, uncomplicated; Z79.899 Other long term (current) drug therapy
CPT/HCPCS: 36415; 70450; 71045; 71275; 80048; 80061; 80076; 81001; 82947; 83036; 83735; 83880; 84484; 85025; 85610; 93005; 93306; 96361; 96374; 96375; 99285; G0378; J1650; J2270; J2405; J3010; J3480; J7030; J7040; Q9967

== ENCOUNTER 2025-05-29 20:58 | Inpatient (IN) | payer OTHER ==
--- NOTE | 2025-05-29 21:27 | RAD REPORT ---
EXAM: CT brain without contrast HISTORY: STROKE ALERT COMPARISON: 12/02/2024 TECHNIQUE: Multiple contiguous axial images were obtained and a CT of the brain without contrast. Sag ittal and coronal reformats were performed. One or more of the following dose reduction techniques were used: Automated exposure control, adjust ment of the mA and/or kV according to patient size, and/or iterative reconstruction. FINDINGS: No evidence of hydrocephalus, intracranial hemorrhage, or extra-axial fluid collection. Mild brain atrophy with mild periventricular and deep white matter chronic microvascular ischemic ch anges present. Aneurysm clips noted parasellar location. No evidence of midline shift or areas of brain edema. The calvarium is intact. The visualized paranasal sinuses and mastoid air cells are essentially clear . IMPRESSION: No evidence of acute intracranial abnormality. The findings were communicated with Mikael Brandon MD at 05/29/2025 9:25 PM by telephone.
--- NOTE | 2025-05-29 21:39 | RAD REPORT ---
EXAMINATION: CTA HEAD CLINICAL INDICATION: headache, left leg weakness, hx of aneurysm TECHNIQUE: Axial CT images were obtained through the head after intravenous contrast utilizing angiog raphic protocol with 3D post-processing (maximum intensity projection images, volume rendered images and/or shaded surface rendered images). One or more of the following dose reduction technique s were used: Automated exposure control, adjustment of the mA and/or kV according to patient size, and/or iterative reconstruction. Unless otherwise specified, incidental findings do not require dedic ated imaging follow-up. COMPARISON: No prior exam. FINDINGS: ICA: The petrous, cavernous, and supraclinoid segments of the bilateral internal carotid arteries are normal. The ophthalmic artery origins are visualized and normal. The posterior communicating arteries are patent. RADHA: Anterior cerebral arteries are normal bilaterally. The anterior communicating artery is patent. MCA: Middle cerebral arteries are normal bilaterally. HUB LEAD: Posterior cerebral arteries are normal bilaterally. Vertebrobasilar: Aneurysm clip seen in the region of the distal basal artery. Right vertebral artery is dominant. 3D images confirm these findings. IMPRESSION: No significant flow abnormality is identified.
--- NOTE | 2025-05-29 21:43 | RAD REPORT ---
EXAMINATION: CTA NECK CLINICAL INDICATION: left leg weak, left neck swelling TECHNIQUE: Axial CT images were obtained from the aortic arch to the skull base after intravenous con trast utilizing angiographic protocol with 3D post-processing (maximum intensity projection images, volume rendered images and/or shaded surface rendered images). One or more of the following dose redu ction techniques were used: Automated exposure control, adjustment of the mA and/or kV according to patient size, and/or iterative reconstruction. Unless otherwise specified, incidental findings do not require dedicated imaging follow-up. COMPARISON: No prior exam. FINDINGS: AORTA: The imaged aortic arch is normal. CCA: The common carotid arteries are patent and normal in caliber. ICA/ECA: Proximal right ICA demonstrates multifocal hard plaquing. Mild focal irregular plaquing left carotid bulb resulting in mild narrowing. VERTEBRAL: Diminutive vertebral arteries. There is evidence of a persistent right hypoglossal artery. SOFT TISSUE: Mild prominent fatty tissue base of the neck on the left. Irregular scarring apex medial ly. 3D images confirm these findings. IMPRESSION: No significant flow abnormality of the neck vessels is identified. NASCET criteria used. Mild 0-49% stenosis Moderate 50-69% stenosis Severe 70-99% stenosis
[2025-05-29 21:54] LABS: Absolute Lymphocytes (CBC) 2.4 K/uL (0.7-4.9); Hematocrit 44.2 % (36.0-45.0); Hemoglobin 15.1 g/dL (12.0-15.0); MCH 31.6 pg (27.0-35.0); MCHC 34.1 g/dL (32.0-36.0); MCV 92.7 fL (80-100); MPV 10.5 fL (7.6-11.3); Nucleated RBC Absolute Count 0.0 (0-0); Nucleated Red Blood Cells % 0.1 % (0-0); RBC Red Blood Cell Count 4.76 M/uL (3.86-4.86); White Blood Count 8.60 thou/uL (4.3-10.9)
[2025-05-29 21:55] LABS: PT Prothrombin Time 12.1 SECONDS (10-13.0); PTT, Activated Partial Thromb 30.9 SECONDS (27.2-37.4); Protime INR 1.07
--- NOTE | 2025-05-29 22:00 | RAD REPORT ---
EXAMINATION: ONE VIEW CHEST XR CLINICAL INDICATION: code stroke TECHNIQUE: Frontal chest projection is submitted. Examination is limited by patient positioning and t echnique. COMPARISON: 11/30/2024 FINDINGS: Mild interstitial pulmonary edema is possible. The heart is upper limit of normal in size. No displac ed fractures identified.
[2025-05-29 22:01] LABS: Anion Gap 7.4 mEq/L (5.0-15.0); BUN Blood Urea Nitrogen 16.0 mg/dL (7-18); Glucose Level 84.0 mg/dL (74-106); Potassium 3.4 mEq/L (3.5-5.1); Troponin High Sensitivity 4.8 pg/mL (<58.9)
--- NOTE | 2025-05-29 22:19 | EDPHYS ---
Physician Documentation [facility] Name: Caroline Jimenez Age: 64 yrs Sex: Female : 1960 Arrival Date: 05/29/2025 Time: 20:58 Bed 7 Private MD: ED Physician Mikael Brandon HPI: 05/29 21:16 This 64 yrs old Female presents to ER via Unassigned with complaints of rn Headache, Numbness Of Face. 21:16 Patient reports last known normal 5 AM today. Woke up again at 9 AM and reported rn headache, left facial tingling and left leg weakness to the point where she had difficulty walking. Patient reports history of cerebral aneurysm. No trauma. Symptoms not improving so came in for evaluation. Also reports swelling to the left neck. Historical: - Allergies: 21:22 No Known Allergies; me1 - PMHx: 21:22 Aneurysm; brain; HIV positive; Hypertensive disorder; me1 - PSHx: 21:22 aneurysm repair; me1 - Immunization history:: Adult Immunizations up to date. - Infectious Disease History:: Denies. - Family history:: not pertinent. - Social history:: Smoking status: Patient reports the use of cigarette tobacco products, smokes one-half pack cigarettes per day. - Hospitalizations: : No recent hospitalization is reported. ROS: 21:16 Constitutional: Negative for fever, chills, and weight loss, Neck: Positive for left rn neck swelling Cardiovascular: Negative for chest pain, palpitations, and edema, Respiratory: Negative for shortness of breath, cough, wheezing, and pleuritic chest pain, Abdomen/GI: Negative for abdominal pain, nausea, vomiting, diarrhea, and constipation, MS/Extremity: Negative for injury and deformity, Skin: Negative for injury, rash, and discoloration, Neuro: Positive for headache and left leg weakness with left facial numbness Exam: 21:16 Constitutional: This is a well developed, well nourished patient who is awake, alert, rn and in no acute distress. Head/Face: Normocephalic, atraumatic. Neck: Trachea midline, left neck/supra clavicular swelling noted, soft Cardiovascular: Regular rate and rhythm. No pulse deficits. Respiratory: No increased work of breathing, no retractions or nasal flaring. MS/ Extremity: Pulses equal, no cyanosis. Neuro: Awake and alert, GCS 15, oriented to person, place, time, and situation. Cranial nerves II-XII grossly intact. Motor strength 5/5 all extremities except left lower extremity which shows drift. 21:36 ECG was reviewed by the Attending Physician. rn Vital Signs: 21:20 BP 154 / 90; Pulse 68; Resp 18; Temp 98.4; Pulse Ox 95% ; Weight 83.91 kg; Height 5 ft. me1 1 in. ; Pain 6/10; 21:30 BP 162 / 94; Pulse 61; Resp 20; Pulse Ox 94% ; vc1 22:00 BP 144 / 88; Pulse 62; Resp 21; Pulse Ox 93% ; vc1 22:30 BP 170 / 92; Pulse 60; Resp 20; Temp 98.4; Pulse Ox 94% ; Pain 0/10; vc1 23:00 BP 160 / 99; Pulse 60; Resp 18; Pulse Ox 95% ; vc1 23:30 BP 148 / 99; Pulse 54; Resp 19; Pulse Ox 95% ; vc1 05/30 00:00 BP 149 / 95; Pulse 57; Resp 18; Pulse Ox 95% ; vc1 05/29 21:20 Body Mass Index 34.96 (83.91 kg, 154.94 cm) me1 05/29 21:20 Pain Scale: Adult me1 22:30 Pain Scale: Adult vc1 NIH Stroke Scale Scores: 05/29 21:12 NIHSS Score: 2 bm8 Lula Coma Score: 21:40 Eye Response: spontaneous(4). Motor Response: obeys commands(6). Verbal Response: bm8 oriented(5). Total: 15. 22:11 Eye Response: spontaneous(4). Motor Response: obeys commands(6). Verbal Response: rn oriented(5). Total: 15. 05/30 00:02 Eye Response: spontaneous(4). Motor Response: obeys commands(6). Verbal Response: bm8 oriented(5). Total: 15. MDM: 05/29 21:10 Medical Screening Exam initiated rn 21:24 Discussion of test interpretation with radiology: I had a discussion with lpn rn hospice regarding a test interpretation. CT head without contrast discussed with Dr. Ocasio, no acute findings, does see aneurysm clips.. Test considered but Not performed: MRI: MRI considered but not available at this time, tech has gone home. ED course: Patient has not TNK candidate due to last known normal was 16-1/2 hours ago as well as history of cerebral aneurysm.. 21:51 Independent interpretation of the following test(s) in the Emergency Department X-Ray: rn My interpretation is Chest x-ray images negative for pneumonia or pneumothorax per my interpretation. CT Scan: My interpretation is CT head images negative for acute hemorrhage per my interpretation. 22:11 Differential diagnosis: cluster headache, hypertensive headache, intracerebral rn hemorrhage, migraine, neoplasm, subarachnoid bleed, tension headache, Cerebral aneurysm, aneurysmal bleed. Data reviewed: vital signs, nurses notes, lab test result(s), radiologic studies, CT scan, and as a result, I will. Consideration of Admission/Observation Patient was admitted/placed on observation. Escalation of care including admission/observation considered. Management of patient was discussed with the following: Hospitalist: Management discussed with hospitalist, will admit. Head Butler: Discussed case with Dr. Salas, okay to admit here. States is available for phone consultation. Recommends aspirin and Plavix as well as folic acid. Counseling: I had a detailed discussion with the patient and/or guardian regarding the historical points, exam findings, and any diagnostic results supporting the discharge/admit diagnosis, lab results, radiology results, the need for further work-up and treatment in the hospital. 23:26 ED course: Family reports known seizure disorder, does not take seizure medication. [place] Quintero added. 05/29 21:15 Order name: Basic Metabolic Panel; Complete Time: 22:05 05/29 21:15 Order name: CBC with Diff; Complete Time: 22: 05/29 21:15 Order name: High Sensitivity Troponin; Complete Time: 22:05 05/29 21:15 Order name: Protime (+inr); Complete Time: 22:05 05/29 21:15 Order name: Ptt, Activated; Complete Time: 22:05 05/29 21:48 Order name: Glucose, Ancillary Testing; Complete Time: 22:05 EDNH 05/29 23:24 Order name: C-Reactive Protein ED[facility] 05/29 23:24 Order name: C-Reactive Protein ED[facility] 05/29 23:24 Order name: C-Reactive Protein ED[facility] 05/29 23:24 Order name: CBC with Automated Diff ED[facility] 05/29 23:24 Order name: CBC with Automated Diff EDMS 05/29 23:24 Order name: CBC with Automated Diff EDMS 05/29 23:24 Order name: CBC with Automated Diff EDMS 05/29 23:24 Order name: Comprehensive Metabolic Panel EDMS 05/29 23:24 Order name: Comprehensive Metabolic Panel EDMS 05/29 23:24 Order name: Comprehensive Metabolic Panel EDMS 05/29 23:24 Order name: Comprehensive Metabolic Panel EDMS 05/29 23:24 Order name: Magnesium EDMS 05/29 23:24 Order name: Magnesium EDMS 05/29 23:24 Order name: Magnesium EDMS 05/29 23:24 Order name: Magnesium EDMS 05/29 21:15 Order name: CT Head Angio; Complete Time: 22:16 rn 05/29 21:15 Order name: CT Neck Angio; Complete Time: 21:43 rn 05/29 21:15 Order name: CT Stroke Brain w/o Contrast; Complete Time: 21:43 rn 05/29 21:15 Order name: Stroke CXR 1 View; Complete Time: 22:05 rn 05/29 23:24 Order name: Echo with Doppler EDMS 05/29 23:24 Order name: CONS Physician Consult EDMS 05/29 23:24 Order name: IRF Screen EDMS 05/29 23:24 Order name: Physical Therapy Consult EDMS 05/29 23:24 Order name: Speech Therapy Consult EDMS 05/29 21:15 Order name: Accucheck; Complete Time: 21:40 rn 14 21:15 Order name: Cardiac monitoring; Complete Time: 21:40 rn 14 21:15 Order name: EKG - Nurse/Tech; Complete Time: 21:40 rn 14 21:15 Order name: IV Saline Lock; Complete Time: 21:39 rn 14 21:15 Order name: Labs collected and sent; Complete Time: 21:40 rn 14 21:15 Order name: NPO; Complete Time: 21:46 rn 14 21:15 Order name: O2 Per Protocol; Complete Time: 21:46 rn 14 21:15 Order name: O2 Sat Monitoring; Complete Time: 21:46 rn 14 21:15 Order name: Stroke Swallow Screen; Complete Time: 21:46 rn EC:36 Rate is 62 beats/min. Rhythm is regular. QRS [place] is Normal. ID interval is normal. QRS rn interval is normal. QT interval is normal. No Q waves. T waves are Normal. No ST changes noted. Clinical impression: NSR w/ Non-specific ST/T Changes. Interpreted by me. Reviewed by me. Administered Medications: 22:29 Drug: Aspirin PO 325 mg PO once Route: PO; bm8 22:29 Drug: Clopidogrel PO 75 mg PO once Route: PO; bm8 22:31 Drug: foLIC Acid IVPB 1 mg IVPB once Route: IVPB; Site: left antecubital; bm8 22:49 Drug: Keppra IV 1000 mg IV at calculated rate once Route: IV; Rate: calculated rate; bm8 Site: right antecubital; Point of Care Testing: Blood Glucose: 21:51 Blood Glucose: 77 mg/dL; bm8 Ranges: Critical Glucose Levels:Adult <50 mg/dl or >400 mg/dl <40 mg/dl or >180 mg/dl Disposition Summary: 05/29/25 22:18 Hospitalization Ordered Notes: Hospitalization Status: Inpatient Admission rn Provider: Orlin Lara rn Location: Telemetry/MedSurg (observation) rn Condition: Stable rn Problem: new rn Symptoms: are unchanged rn Bed/Room Type: Standard rn Room Assignment: 224(05/29/25 23:21) vk Diagnosis - Weakness rn - Paresthesia of skin rn Forms: - Medication Reconciliation Form rn - SBAR form rn - Leadership Thank You Letter rn NIH Stroke Scale - NIH Stroke Score Date: 05/29/2025 Time: 21:12 Total Score = 2 10. Dysarthria (speech clarity - read or repeat words) - 0(Normal) 11. Extinction and Inattention (visual/tactile/auditory/spatial/personal) - 0(No abnormality) 1a. Level of Consciousness (LOC) - 0(Alert) 1b. Level of Consciousness (LOC) (Month \T\ Age) - 0(Both) 1c. LOC Commands (Open \T\ Closes Eyes/Marble Installer Supervisor) - 0(Both) 2. Best Gaze (Lateral Gaze Paresis) - 0(Normal) 3. Visual Field Loss - 0(No visual loss) 4. Facial Palsy - 0(Normal) 5a. Left Arm: Motor (10-second hold) - 0(No drift) 5b. Right Arm: Motor (10-second hold) - 0(No drift) 6a. Left Leg: Motor (5-second hold - always test supine) - 1(Drift) 6b. Right Leg: Motor (5-second hold - always test supine) - 0(No drift) 7. Limb Ataxia (finger/nose \T\ heel/clement - test with eyes open) - 0(Absent) 8. Sensory Loss (pinprick arms/legs/face) - 1(Mild to moderate loss) 9. Best Language: Aphasia (description/naming/reading) - 0(No aphasia) Initials: bm8 Signatures: Dispatcher [employer] EDMS Mikael Brandon MD MD rn Eddleman, Michelle, RN RN me1 Maria Teresa Dunlap Brad RN RN bm8 Corrections: (The following items were deleted from the chart) 21:16 21:16 BASIC METABOLIC PANEL+C.LAB.BRZ ordered. EDMS EDMS 21:16 21:16 CBC+H.LAB.BRZ ordered. EDMS EDMS 21:16 21:16 Troponin High Sensitivity+C.LAB.BRZ ordered. EDMS EDMS 21:16 21:16 PROTIME (+INR)+COAG.LAB.BRZ ordered. EDMS EDMS 21:16 21:16 PTT, ACTIVATED+COAG.LAB.BRZ ordered. EDMS EDMS 21:16 21:16 Head Angio+CT.RAD.BRZ ordered. EDMS EDMS 21:16 21:16 Neck Angio+CT.RAD.BRZ ordered. EDMS EDMS 21:16 21:16 CT-STROKE BRAIN W/O CONTRAST+CT.RAD.BRZ ordered. EDMS EDMS 21:16 21:16 Chest Single View+RAD.RAD.BRZ ordered. EDMS EDMS 22:18 22:11 Management of patient was discussed with the following: Hospitalist: rn Management discussed with hospitalist, will admit. Head Butler: Discussed case with Dr. Salas, states okay to admit here. States is available for phone consultation. rn : 22:18 [place] hubbard
--- NOTE | 2025-05-29 22:19 | ER ---
Nurse's Notes [facility] Name: Caroline Jimenez Age: 64 yrs Sex: Female : 1960 Arrival Date: 05/29/2025 Time: 20:58 Bed 7 Private MD: Diagnosis: Weakness;Paresthesia of skin Presentation: 05/29 21:08 Chief complaint: Patient states: woke up this morning at 09:00 and couldn't walk due to me1 left foot numbness and weakness, reports left arm feels heavy and numbness to left face. Last known well was yesterday about midnight when she went to bed. c/o MACIAS all day today as well. Patient noticed a soft "knot" near her left clavicle this evening. 21:20 Coronavirus screen: Vaccine status: Patient reports receiving the 2nd dose of the covid me1 vaccine. Ebola Screen: No symptoms or risks identified at this time. Initial Sepsis Screen: Does the patient meet any 2 criteria? No. Patient's initial sepsis screen is negative. Does the patient have a suspected source of infection? No. Patient's initial sepsis screen is negative. Risk Assessment: Do you want to hurt yourself or someone else? Patient reports no desire to harm self or others. Onset of symptoms was May 29, 2025 at 09:00. 21:20 Method Of Arrival: Wheelchair me1 21:20 Acuity: MICHAEL 2 me1 21:49 An acute neurological deficit is present. The charge nurse has been notified. The bm8 patient has been moved to a treatment area. Pre-hospital glucose is not applicable to this patient. 21:51 Onset of symptoms was May 28, 2025 at 00:00. bm8 Triage Assessment: 21:11 The onset of the patients symptoms was. bm8 21:46 Headache History: Denies prior headaches. General: Appears in no apparent distress. bm8 comfortable, Behavior is calm, cooperative, appropriate for age. Pain: Denies pain. 21:51 The onset of the patients symptoms was May 28, 2025 at 00:00. bm8 Stroke Activation: Physician: ED Attending; Name: MAYKEL; Notified At: 21:11; Arrived At: 21:11 Physician: Mid-Level Provider; Name: ; Notified At: 21:11; Arrived At: Physician: [not used]; Name: ; Notified At: ; Arrived At: Physician: [not used]; Name: ; Notified At: ; Arrived At: Physician: [not used]; Name: ; Notified At: ; Arrived At: Historical: - Allergies: 21:22 No Known Allergies; me1 - PMHx: 21:22 Aneurysm; brain; HIV positive; Hypertensive disorder; me1 - PSHx: 21:22 aneurysm repair; me1 - Immunization history:: Adult Immunizations up to date. - Infectious Disease History:: Denies. - Family history:: not pertinent. - Social history:: Smoking status: Patient reports the use of cigarette tobacco products, smokes one-half pack cigarettes per day. - Hospitalizations: : No recent hospitalization is reported. Screenin:40 [facility] ED Fall Risk Assessment (Adult) History of falling in the last 3 months, bm8 including since admission No falls in past 3 months (0 pts) Confusion or Disorientation No (0 pts) Intoxicated or Sedated No (0 pts) Impaired Gait No (0 pts) Mobility Assist Device Used No (0 pt) Altered Elimination No (0 pt) Score/Fall Risk Level 0 - 2 = Low Risk Oriented to surroundings, Maintained a safe environment, Educated pt \\T\\ family on fall prevention, incl call for assistance when getting out of bed, Assessed \\T\\ reinforced patient's understanding of fall precautions, Hourly rounding (assess needs \\T\\ fall precautionary measures) done, Used ambulatory aids as needed (educated on \\T\\ assisted with), Used gait belt as appropriate. Abuse screen: Denies threats or abuse. Nutritional screening: No deficits noted. 21:47 Tuberculosis screening: No symptoms or risk factors identified. bm8 Assessment: 21:12 VAN Scoring: Arm Drift: Patients demonstrates NO arm weakness. Patient is VAN Negative. bm8 Visual Disturbance: No visual disturbance noted. Aphasia: No aphasia noted. Neglect: No neglect noted. Letts Swallow Protocol Exclusion Criteria: Unable to remain alert for testing: No NPO for medical/surgical reason by provider order No Head-of-bed restricted <30 degrees Tracheostomy tube present No No thin liquids due to preexisting dysphagia/baseline modified diet thickened liquids No Exclusion Criteria Result: Proceed Brief Cognitive Screen What is your name? Normal, Where are you right now? Normal, What year is it? Normal. Oral Mechanism Examination Facial Symmetry: Normal, Motion: Normal, Lip Closure: Normal, Oral Mechanism Result: Normal. 3 oz Water Swallow Challenge: Pt able to drink all water without stopping, coughing, choking or throat clearing: Yes Result: PASS Notified: Mikael Brandon MD. TNKase (Tenecteplase) Screening: Contraindications: Intracranial neoplasm, AV Malformation, Aneurysm: Yes. 21:40 General: Appears in no apparent distress. comfortable, Behavior is calm, cooperative, bm8 appropriate for age. Pain: Denies pain. Neuro: Level of Consciousness is awake, alert, obeys commands, Oriented to person, place, time, situation, Appropriate for age Homicide Squad Commanding Officer are weak on left Moves all extremities. Weakness in left leg(s) Speech is normal, Facial symmetry appears normal, Pupils are PERRLA, Pupil Size: 4mm Numbness in forehead, left cheek and left jaw Reports numbness in left face weakness in left leg. Cardiovascular: Denies chest pain, Capillary refill < 3 seconds in bilateral fingers Patient's skin is warm and dry. Respiratory: Airway is patent Respiratory effort is even, unlabored, Respiratory pattern is regular, symmetrical, Breath sounds are clear bilaterally. GI: No signs and/or symptoms were reported involving the gastrointestinal system. : No signs and/or symptoms were reported regarding the genitourinary system. EENT: No signs and/or symptoms were reported regarding the EENT system. Derm: No signs and/or symptoms reported regarding the dermatologic system. Musculoskeletal: No signs and/or symptoms reported regarding the musculoskeletal system. 22:28 Reassessment: Patient appears in no apparent distress at this time. No changes from vc1 previously documented assessment. Patient and/or family updated on plan of care and expected duration. Pain level reassessed. Patient is alert, oriented x 3, equal unlabored respirations, skin warm/dry/pink. 22:47 Reassessment: family stated that they believed she just had an active seizure. This bm8 nurse witnessed eye twitching and rapid breathing upon arrival into the room. Provider informed and new orders received. 05/30 00:02 Reassessment: Patient appears in no apparent distress at this time. Patient and/or bm8 family updated on plan of care and expected duration. Pain level reassessed. Patient is alert, oriented x 3, equal unlabored respirations, skin warm/dry/pink. Patient denies pain at this time. Patient states feeling better. Patient states symptoms have improved. Neuro: Level of Consciousness is awake, alert, obeys commands, Oriented to person, place, time, situation, Appropriate for age. Vital Signs: 05/29 21:20 BP 154 / 90; Pulse 68; Resp 18; Temp 98.4; Pulse Ox 95% ; Weight 83.91 kg; Height 5 ft. me1 1 in. ; Pain 6/10; 21:30 BP 162 / 94; Pulse 61; Resp 20; Pulse Ox 94% ; vc1 22:00 BP 144 / 88; Pulse 62; Resp 21; Pulse Ox 93% ; vc1 22:30 BP 170 / 92; Pulse 60; Resp 20; Temp 98.4; Pulse Ox 94% ; Pain 0/10; vc1 23:00 BP 160 / 99; Pulse 60; Resp 18; Pulse Ox 95% ; vc1 23:30 BP 148 / 99; Pulse 54; Resp 19; Pulse Ox 95% ; vc1 05/30 00:00 BP 149 / 95; Pulse 57; Resp 18; Pulse Ox 95% ; vc1 05/29 21:20 Body Mass Index 34.96 (83.91 kg, 154.94 cm) me1 05/29 21:20 Pain Scale: Adult me1 22:30 Pain Scale: Adult vc1 Lula Coma Score: 05/29 21:40 Eye Response: spontaneous(4). Motor Response: obeys commands(6). Verbal Response: bm8 oriented(5). Total: 15. 22:11 Eye Response: spontaneous(4). Motor Response: obeys commands(6). Verbal Response: rn oriented(5). Total: 15. 05/30 00:02 Eye Response: spontaneous(4). Motor Response: obeys commands(6). Verbal Response: bm8 oriented(5). Total: 15. NIH Stroke Scale Scores: 05/29 21:12 NIHSS Score: 2 bm8 ED Course: 21:02 Patient arrived in ED. al6 21:10 Mikael Brandon MD is Attending Physician. rn 21:22 Triage completed. me1 21:23 CT Stroke Brain w/o Contrast In Process Unspecified. EDMS 21:23 Arm band placed on Patient placed in waiting room. me1 21:28 CT Head Angio In Process Unspecified. EDMS 21:29 CT Neck Angio In Process Unspecified. EDMS 21:34 Inserted saline lock: 22 gauge in right antecubital area, using aseptic technique. br2 Blood collected. Flushed with 10 mL NS. 21:39 Alex Serrano, RN is Primary Nurse. bm8 21:39 Basic Metabolic Panel Sent. br2 21:39 CBC with Diff Sent. br2 21:39 High Sensitivity Troponin Sent. br2 21:39 Protime (+inr) Sent. br2 21:39 Ptt, Activated Sent. br2 21:40 Patient has correct armband on for positive identification. Placed in gown. Bed in low bm8 position. Call light in reach. Side rails up X2. Adult w/ patient. Client placed on continuous cardiac and pulse oximetry monitoring. NIBP monitoring applied. quality assurance monitor final on. Pulse ox on. NIBP on. Door closed. Noise minimized. Warm blanket given. Pillow given. Verbal reassurance given. Head of bed elevated. 21:40 No provider procedures requiring assistance completed. Initial lab(s) drawn, by biju watson sent to lab. EKG done, by ED staff, reviewed by Mikael Brandon MD X-ray(s) taken. Inserted saline lock: 18 gauge in left antecubital area, using aseptic technique. Blood collected. Flushed with 10 mL NS. Patient maintains SpO2 saturation greater than 95% on room air. 21:48 Stroke CXR 1 View In Process Unspecified. EDMS 22:17 Orlin Lara, RN is Hospitalizing Provider. rn 05/30 00:00 Provided Education on: need for multiple blood pressures. vc1 00:06 Patient admitted, IV remains in place. vc1 Administered Medications: 05/29 22:29 Drug: Aspirin PO 325 mg PO once Route: PO; bm8 22:29 Drug: Clopidogrel PO 75 mg PO once Route: PO; bm8 22:31 Drug: foLIC Acid IVPB 1 mg IVPB once Route: IVPB; Site: left antecubital; bm8 22:49 Drug: Keppra IV 1000 mg IV at calculated rate once Route: IV; Rate: calculated rate; bm8 Site: right antecubital; Medication: 21:40 VIS not applicable for this client. bm8 Point of Care Testing: Blood Glucose: 21:51 Blood Glucose: 77 mg/dL; bm8 Ranges: Outcome: 22:18 Decision to Hospitalize by Provider. rn 05/30 00:06 Admitted to Med/surg accompanied by tech, via wheelchair, room 224, vc1 Condition: stable 00:06 Instructed on the need for admit, vc1 00:08 Patient left the ED. vc1 NIH Stroke Scale - NIH Stroke Score Date: 05/29/2025 Time: 21:12 Total Score = 2 10. Dysarthria (speech clarity - read or repeat words) - 0(Normal) 11. Extinction and Inattention (visual/tactile/auditory/spatial/personal) - 0(No abnormality) 1a. Level of Consciousness (LOC) - 0(Alert) 1b. Level of Consciousness (LOC) (Month \\T\\ Age) - 0(Both) 1c. LOC Commands (Open \\T\\ Closes Eyes/Head Tennis Professional) - 0(Both) 2. Best Gaze (Lateral Gaze Paresis) - 0(Normal) 3. Visual Field Loss - 0(No visual loss) 4. Facial Palsy - 0(Normal) 5a. Left Arm: Motor (10-second hold) - 0(No drift) 5b. Right Arm: Motor (10-second hold) - 0(No drift) 6a. Left Leg: Motor (5-second hold - always test supine) - 1(Drift) 6b. Right Leg: Motor (5-second hold - always test supine) - 0(No drift) 7. Limb Ataxia (finger/nose \\T\\ heel/clement - test with eyes open) - 0(Absent) 8. Sensory Loss (pinprick arms/legs/face) - 1(Mild to moderate loss) 9. Best Language: Aphasia (description/naming/reading) - 0(No aphasia) Initials: bm8 Signatures: Dispatcher [employer] EDMikael Christopher MD MD rn Calcote, Vanessa RN RN vc1 Luci Elkins RN RN me1 Alex Serrano RN RN bm8 Obdulia Thornton RN RN br2 Ashley [email or web address] Corrections: (The following items were deleted from the chart) 05/29 21:22 21:08 Chief complaint: Patient states: woke up this morning at 09:00 and me1 couldn't walk due to left foot numbness and weakness, reports left arm feels heavy and numbness to left face with slight left facial droop. Last known well was yesterday about midnight when she went to bed. c/o MACIAS all day today as well. me1 :22 21:20 Onset of symptoms was May 28, 2025 at 00:01 me1 me1 21:25 21:08 Chief complaint: Patient states: woke up this morning at 09:00 and me1 couldn't walk due to left foot numbness and weakness, reports left arm feels heavy and numbness to left face. Last known well was yesterday about midnight when she went to bed. c/o MACIAS all day today as well. me1 23:50 22:47 BP 170 / 92; Pulse 60bpm; Resp 20bpm; Pulse Ox 94%; Temp 98.4F; Pain vc1 0/10, Adult; bm8
[2025-05-29] MEDS ORDERED: ASPIRIN 325 MG TAB ONE (22:22)
[2025-05-29] MEDS ORDERED: CLOPIDOGREL 75 MG TABLET ONE (22:23)
[2025-05-29] MEDS ORDERED: FOLIC ACID 1 MG TABLET ONE (22:23)
[2025-05-29] MEDS ORDERED: FOLIC ACID 5 MG/ML VIAL ONE (22:30)
[2025-05-29] MEDS ORDERED: LEVETIRACETAM 500 MG/5 ML VIAL IV ONE (22:43)
[2025-05-29] MEDS ORDERED: NA CHLORIDE 0.9% 100 ML ONE (22:43)
[2025-05-29] MEDS: D5LR 1,000 ML IV SCH (23:45)
[2025-05-30 01:12] VITALS: BMI 34.9
[2025-05-30] MEDS: NA CHLORIDE 0.9% 1,000 ML IV SCH (01:18)
[2025-05-30] MEDS: KCL 20 MEQ/100 mL IVPB 20 MEQ/100 ML BAG IV SCH (01:18)
--- NOTE | 2025-05-30 03:38 | P.HP ---
Certification for Inpatient Patient admitted to: Inpatient With expected LOS: >2 Midnights Patient will require the following post-hospital care: Home Health Services (Patient will benefit from home physical therapy.) Practitioner: I am a practitioner with admitting privileges, knowledge of patient current condition, hospital course, and medical plan of care. Services: Services provided to patient in accordance with Admission requirements found in Title 42 Section 412.3 of the Code of Federal Regulations Patient History Date of Service: 05/29/25 Reason for admission: Stroke with left-sided weakness. History of Present Illness: Patient is a 64-year-old female with past medical history of HIV, essential hypertension, neuropathy, stroke 4 years ago with mild residual deficit left side, cerebral aneurysm with clipping, brought to the ER today complaining of weakness and numbness left side/bilateral upper and lower extremities with associated headache, with no shortness of breath or chest pain. According to the patient and daughter present at bedside, states around 9 AM this morning, patient was unable to walk, and complaining of left arm weakness and heaviness, numbness and weakness on the left leg with tingling sensation, and states her toes on her left foot felt cold. Her daughter states patient did not have any slurred speech, she was still able to swallow. On admission assessment, patient was fully awake, alert and oriented x 3, communicates appropriately, follows all commands appropriately, weakness on left lower and upper extremities, with no slurred speech noted. According to report received from ER Dr. Brandon, he states he called and spoke to neurologist Maritza, he states patient can be admitted here at the hospital. Course in ER: Patient had multiple radiographic studies done in ER including neck CTA, head CTA, brain CT all impressions negative for any acute findings. Chest [id number]: Mild interstitial pulmonary edema is possible. The heart is upper limit of normal in size. No displaced fractures identified. Allergies No Known Allergies Allergy (Verified 05/30/25 00:14) Home Medications: Bictegrav/Emtricit/Tenofov Ala [Biktarvy 50-200-25 mg Tablet] 1 tab PO DAILY 12/01/24 Carvedilol [Coreg] 3.125 ng PO BID 12/01/24 Gabapentin 300 mg PO TID 05/30/25 Sertraline HCl [Zoloft] 50 mg PO ONCE 05/30/25 - Past Medical/Surgical History Has patient received pneumonia vaccine in the past: Yes -: HTN -: HIV POSITIVE -: ANEURYSM -: Stroke 4 years ago. -: Neuropathy. -: Aneurysm repair with clipping. -: Umbilical hernia repair. - Family History Sister -: Diabetes - Social History Smoking Status: Current every day smoker Patient receptive to therapy: No Alcohol use: No CD- Drugs: No Caffeine use: Yes Place of Residence: Home Review of Systems 10-point ROS is otherwise unremarkable General: Weakness (Mostly left side.), Other (Heaviness on left arm, left leg.) Musculoskeletal: Other (Weakness left arm and left leg.) Physical Examination - Vital Signs Temperature: 98 F Blood Pressure: 156/95 Pulse: 55 Respirations: 20 Pulse Ox (%): 91 - Physical Exam General: Oriented x3, Cooperative HEENT: Atraumatic, Normocephalic, PERRLA, Mucous membr. moist/pink, Sclerae nonicteric Neck: Supple, 2+ carotid pulse no bruit, No LAD, Without JVD or thyroid abnormality Respiratory: Clear to auscultation bilaterally, Normal air movement Cardiovascular: No edema, Normal pulses, Regular rate/rhythm, Normal S1 S2, No gallops, No rubs, No murmurs Capillary refill: <2 Seconds Gastrointestinal: Normal bowel sounds, Soft and benign, Non-distended, W/out hepatomegaly, No ascites, No tenderness, No masses, No rebound, No guarding Musculoskeletal: No clubbing, No swelling, Other (Weakness left arm and left leg) Integumentary: No rashes, No breakdown, No tenderness/swelling, No erythema, No warmth, No cyanosis Neurological: Normal speech, Normal affect, Other (Stroke with left side weakness.) Lymphatics: No axilla or inguinal lymphadenopathy - Studies Laboratory Data (last 24 hrs) 05/29/25 05/29/25 05/29/25 21:24 21:24 21:24 WBC 8.60 Hgb 15.1 H Hct 44.2 Plt Count 202 PT 12.1 INR 1.07 APTT 30.9 Sodium 141 Potassium 3.4 L BUN 16 Creatinine 1.23 H Glucose 84 Female Exam - Breasts Breasts: Normal configuration Assessment and Plan - Plan Patient is a 64-year-old female admitted inpatient with stroke with associated left-sided weakness. (1)Stroke/NANCI -N.P.O. until swallow test is completed. Patient had a bed swallow test done after she was admitted and was successful. -PT/OT consultation. -IV D5 LR @ 75ml/ hr. -Aspirin 132 mg p.o. daily. -Plavix 75 mg p.o. daily. -Order echocardiogram. -Atorvastatin 80 mg p.o. nightly. -MRI brain in AM. -Permissive hypertension. -Consult neurologist Dr. Salas. (2)Hypokalemia. -KCl 20 mEq IV diluted x 1.. -Follow-up CMP in the morning. (3)Explained the entire treatment plan to the patient, daughter present at bedside, solicit questions answered and voiced understanding. Discharge Plan: Home (Patient will benefit from home physical therapy.) Plan to discharge in: Greater than 2 days - Advance Directives Does patient have a Living Will: No Does patient have a Durable POA for Healthcare: No - Code Status/Comfort Care Code Status Assessed: Yes Code Status: Do Not Attempt Resuscitat (Patient opted to be a DNR/DNI on adm ission, patient daughter present.) Critical Care: No Time Spent Managing Pts Care (In Minutes): 55
[2025-05-30 05:45] LABS: Absolute Lymphocytes (CBC) 2.0 K/uL (0.7-4.9); Hematocrit 40.4 % (36.0-45.0); Hemoglobin 13.9 g/dL (12.0-15.0); MCH 31.7 pg (27.0-35.0); MCHC 34.3 g/dL (32.0-36.0); MCV 92.3 fL (80-100); MPV 10.2 fL (7.6-11.3); Nucleated RBC Absolute Count 0.0 (0-0); Nucleated Red Blood Cells % 0.1 % (0-0); RBC Red Blood Cell Count 4.38 M/uL (3.86-4.86); White Blood Count 7.10 thou/uL (4.3-10.9)
[2025-05-30 06:06] LABS: ALT/SGPT 21 U/L (13-56); AST/SGOT 12 U/L (15-37); Albumin 3.1 g/dL (3.4-5.0); Albumin/Globulin Ratio 0.9 (1.1-1.8); Alkaline Phosphatase 74 U/L (45-117); Anion Gap 7.6 mEq/L (5.0-15.0); BUN Blood Urea Nitrogen 19 mg/dL (7-18); Globulin 3.4 g/dL (2.3-3.5); Glucose Level 113 mg/dL (74-106); Magnesium 2.0 mg/dL (1.6-2.4); Potassium 3.6 mEq/L (3.5-5.1)
[2025-05-30 06:07] LABS: C-Reactive Protein < 2.90 mg/L (<3.00)
[2025-05-30] MEDS: CLOPIDOGREL 75 MG TABLET PO SCH (08:28)
[2025-05-30] MEDS: ASPIRIN EC 81 MG TAB PO SCH (08:35)
[2025-05-30] MEDS: SERTRALINE HCL 50 MG TAB PO SCH (08:35)
[2025-05-30] MEDS: GABAPENTIN 300 MG CAP PO SCH (08:35)
[2025-05-30] MEDS: [UNRECOGNIZED DRUG - OTHER] PO SCH (09:00)
[2025-05-30] MEDS: POTASSIUM CL SA 10 MEQ TAB PO ONE (12:52)
--- NOTE | 2025-05-30 13:58 | ECHO ---
HEIGHT: 5 ft 1 in WEIGHT: 185 lb 0 oz DATE OF STUDY: 05/30/[address]: Orlin Lara NP 2-DIMENSIONAL: YES M.MODE: YES DOPPLER: YES COLOR FLOW: YES TDS: PORTABLE: YES DEFINITY: BUBBLE STUDY: DIAGNOSIS: STROKE CARDIAC HISTORY: CATHERIZATION: NO SURGERY: NO PROSTHETIC VALVE: NO PACEMAKER: NO MEASUREMENTS (cm) DIASTOLIC (NORMALS) SYSTOLIC (NORMALS) IVSd 1.1 (0.6-1.2) LA Diam 3.3 (1.9-4.0) LVEF 60-65% LVIDd 4.3 (3.5-5.7) LVIDs 2.3 (2.0-3.5) %FS 46% LVPWd 1.3 (0.6-1.2) Ao Diam 2.7 (2.0-3.7) 2 DIMENSIONAL ASSESSMENT: RIGHT ATRIUM: NORMAL LEFT ATRIUM: NORMAL RIGHT VENTRICLE: NORMAL LEFT VENTRICLE: NORMAL TRICUSPID VALVE: TRACE TRICUSPID REGURGITATION MITRAL VALVE: TRACE MITRAL REGURGITATION PULMONIC VALVE: NORMAL AORTIC VALVE: NORMAL PERICARDIAL EFFUSION: NONE AORTIC ROOT: NORMAL LEFT VENTRICULAR WALL MOTION: NORMAL DOPPLER/COLOR FLOW: SEE BELOW COMMENTS: 1. NORMAL LEFT VENTRICULAR EJECTION FRACTION 60-65% WITH NORMAL WALL MOTION 2. NORMAL DIASTOLIC FUNCTION 3. TRACE MITRAL REGURGITATION TECHNOLOGIST: JESS SANCHEZ
--- NOTE | 2025-05-30 15:13 | P.PN ---
Date of Service: 05/30/25 Patient seen and examined. She is complaining of increased weakness in the left extremities. Seen by PT today and patient has difficulty with ambulation. Plan: MRI of the brain is pending. Continue stroke workup. Neurology consulted. We are avoiding anticoagulation for DVT prophylaxis given history of cerebral vessel aneurysm with clips. SCD for DVT prophylaxis. Neurochecks.
[2025-05-30] MEDS ORDERED: ENOXAPARIN 40 MG/0.4 ML SQ SCH (17:00)
[2025-05-30] MEDS: ATORVASTATIN 80 MG TAB PO SCH (20:51)
[2025-05-31 05:29] VITALS: O2SAT 98
[2025-05-31 05:45] LABS: Absolute Lymphocytes (CBC) 1.9 K/uL (0.7-4.9); Hematocrit 41.0 % (36.0-45.0); Hemoglobin 13.8 g/dL (12.0-15.0); MCH 31.4 pg (27.0-35.0); MCHC 33.7 g/dL (32.0-36.0); MCV 93.2 fL (80-100); MPV 10.4 fL (7.6-11.3); Nucleated RBC Absolute Count 0.0 (0-0); Nucleated Red Blood Cells % 0.1 % (0-0); RBC Red Blood Cell Count 4.40 M/uL (3.86-4.86); White Blood Count 6.80 thou/uL (4.3-10.9)
[2025-05-31 06:13] LABS: ALT/SGPT 19 U/L (13-56); AST/SGOT 11 U/L (15-37); Albumin 3.0 g/dL (3.4-5.0); Albumin/Globulin Ratio 0.9 (1.1-1.8); Alkaline Phosphatase 69 U/L (45-117); Anion Gap 6.4 mEq/L (5.0-15.0); BUN Blood Urea Nitrogen 17 mg/dL (7-18); Globulin 3.2 g/dL (2.3-3.5); Glucose Level 112 mg/dL (74-106); Magnesium 1.9 mg/dL (1.6-2.4); Potassium 3.4 mEq/L (3.5-5.1)
[2025-05-31 07:01] LABS: C-Reactive Protein < 2.90 mg/L (<3.00)
--- NOTE | 2025-05-31 10:22 | RAD REPORT ---
EXAM: CT brain without contrast HISTORY: Left-sided weakness. COMPARISON: May 29, 2025 TECHNIQUE: Multiple contiguous axial images were obtained and a CT of the brain without contrast. Sagittal and coronal reformats were performed. Automated exposure control, adjustment of the mA and/or kV according to patient size, and/or itera tive reconstruction. Unless otherwise specified, incidental findings do not require dedicated imaging follow-u FINDINGS: Artifact from aneurysm clips results in artifact obscuring detail of portions of the brain. An acute intracranial bleed is not seen. Ventricles are normal caliber No extra-axial fluid collection noted Mild low-density areas periventricular, deep and subcortical white matter probably ischemic changes s econdary to small vessel disease. No fluid within the visualized sinuses or mastoids noted. IMPRESSION: No acute intracranial abnormality noted. notified at 10:17 AM May 31, 2025
[2025-05-31 11:48] VITALS: BP 131/71; TEMP 98.1
--- NOTE | 2025-05-31 13:23 | P.DS ---
Admission Date: 05/29/25 Discharge Date: 05/31/25 Disposition: DC HOME/HOME HEALTH CARE Discharge Condition: FAIR Reason for Admission: Stroke with left-sided weakness. Brief History of Present Illness: 64-year-old female with past medical history of HIV, essential hypertension, neuropathy, stroke 4 years ago with mild residual deficit left side, cerebral aneurysm with clipping, presented to the ER complaining of weakness and numbness left side/bilateral upper and lower extremities with associated headache. According to the patient and daughter present at bedside denies difficulty walking and also reported tingling sensation in left leg. No reported slurred speech or difficulty with swallowing. In the ER, patient had multiple radiographic studies done in ER including neck CTA, head CTA, brain CT all impressions negative for any acute findings. Patient was hospitalized for further stroke workup. Hospital Course: Diagnosis Acute CVA with left-sided weakness History of CVA History of HIV History of cerebrovascular aneurysm status post clips Patient admitted to the medical floor. MRI of the brain was ordered but it appears it cannot be done because of the presence of aneurysmal clips. Repeat CT head was done which was negative for acute stroke. Patient was evaluated by physical therapy and was able to ambulate about 150 feet with a walker. Skilled rehab was offered but patient declined and preferred to go home with therapy. Lipid profile within normal limits but above target. Patient was placed on high-dose statin. Anticoagulation was not used for DVT prophylaxis due to history of aneurysm with aneurysmal clips. Patient is tolerating diet, has no problem with speech. He reports improvement in her left lower extremity weakness. Patient noted to have decreased respiration during sleep. She is suspected to have obstructive sleep apnea. She was placed on BiPAP overnight. Patient will need follow-up with pulmonary as an outpatient for sleep study. Vital Signs/Physical Exam: Temp Pulse Resp BP Pulse Ox 98.1 F 61 16 131/71 97 05/31/25 11:47 05/31/25 11:47 05/31/25 11:47 05/31/25 11:47 05/31/25 11:47 General: Alert, In no apparent distress, Oriented x3 HEENT: Mucous membr. moist/pink Neck: Supple, JVD not distended Respiratory: Clear to auscultation bilaterally, Normal air movement Cardiovascular: No edema, Regular rate/rhythm, Normal S1 S2 Gastrointestinal: Normal bowel sounds, Soft and benign, Non-distended, No tenderness Musculoskeletal: No swelling Integumentary: No rashes, No cyanosis Neurological: Other (Left-sided weakness) Laboratory Data at Discharge: WBC 6.80 thou/uL (4.3-10.9) 05/31/25 05:21 Hgb 13.8 g/dL (12.0-15.0) 05/31/25 05:21 Hct 41.0 % (36.0-45.0) 05/31/25 05:21 Plt Count 172 thou/uL (152-406) 05/31/25 05:21 PT 12.1 SECONDS (10-13.0) 05/29/25 21:24 INR 1.07 05/29/25 21:24 APTT 30.9 SECONDS (27.2-37.4) 05/29/25 21:24 Sodium 142 mEq/L (136-145) 05/31/25 05:21 Potassium 3.4 mEq/L (3.5-5.1) L 05/31/25 05:21 BUN 17 mg/dL (7-18) 05/31/25 05:21 Creatinine 0.87 mg/dL (0.55-1.02) 05/31/25 05:21 Glucose 112 mg/dL (74-106) H 05/31/25 05:21 Magnesium 1.9 mg/dL (1.6-2.4) 05/31/25 05:21 Total Bilirubin 0.4 mg/dL (0.2-1.0) 05/31/25 05:21 AST 11 U/L (15-37) L 05/31/25 05:21 ALT 19 U/L (13-56) 05/31/25 05:21 Alkaline Phosphatase 69 U/L (45-117) 05/31/25 05:21 LDL Cholesterol Direct 107 mg/dL (100-129) 05/30/25 05:29 Home Medications: Bictegrav/Emtricit/Tenofov Ala [Biktarvy 50-200-25 mg Tablet] 1 tab PO DAILY 12/01/24 Carvedilol [Coreg] 3.125 ng PO BID 12/01/24 Gabapentin 300 mg PO TID 05/30/25 Sertraline HCl [Zoloft] 50 mg PO ONCE 05/30/25 Aspirin [Aspirin EC 81 MG] 81 mg PO DAILY #30 tab 05/31/25 Atorvastatin Calcium [Lipitor] 80 mg PO BEDTIME #30 tab 05/31/25 Clopidogrel Bisulfate [Plavix*] 75 mg PO DAILY #30 tab 05/31/25 Folic Acid 1 mg PO DAILY #30 tab 05/31/25 New Medications: Aspirin [Aspirin EC 81 MG] 81 mg PO DAILY #30 tab Folic Acid 1 mg PO DAILY #30 tab Atorvastatin Calcium [Lipitor] 80 mg PO BEDTIME #30 tab Clopidogrel Bisulfate [Plavix*] 75 mg PO DAILY #30 tab Diet: AHA Activity: Fall precautions Followup: Richi Salas MD [ASSOCIATE-ACTIVE - CAN ADMIT] - (Within 1 week. Please inform the Hotel Supplies Salesperson this is an after hospital admission follow-up.) NONE,NONE [Primary Care Provider] - 1 Week Mino Carbajal MD [ACTIVE - CAN ADMIT] - 1-2 Weeks (For evaluation for obstructive sleep apnea) Time spent managing pt's care (in minutes): 33
[2025-05-31] MEDS: POTASSIUM CL SA 10 MEQ TAB PO ONE (13:37)
== END 2025-05-31 16:01 | disposition home health service (06) | DRG 65 ==
LOC: ER 20:58 → 2ND 23:13
PROVIDERS: ADMIT Internal Medicine; ATTEND Internal Medicine
PROC: 5A09457 Assistance with Respiratory Ventilation, 24-96 Consecutive Hours, Continuous Positive Airway Pressure (ICD-10-PCS; principal; 2025-05-31)
DX: I63.9 Cerebral infarction, unspecified (principal); B20 Human immunodeficiency virus [HIV] disease; I69.354 Hemiplegia and hemiparesis following cerebral infarction affecting left non-dominant side; N17.9 Acute kidney failure, unspecified; I10 Essential (primary) hypertension; Z86.73 Personal history of transient ischemic attack (TIA), and cerebral infarction without residual deficits; G62.9 Polyneuropathy, unspecified; F17.210 Nicotine dependence, cigarettes, uncomplicated; R29.702 NIHSS score 2; E87.6 Hypokalemia; Z66 Do not resuscitate
CPT/HCPCS: 36415; 70450; 70496; 70498; 71045; 80048; 80053; 82565; 82947; 83735; 84484; 85025; 85610; 85730; 86140; 92610; 93005; 93306; 94660; 97112; 97116; 97161; 97530; 99285; J1953; J3480; J7030; J7121; Q9967